=== PATIENT | female | born 1975 | race Caucasian/White ===

== ENCOUNTER 2025-01-14 02:59 | Inpatient (IN) | payer MEDICAID, SELFPAY ==
[2025-01-14] VITALS (21 sets, daily range): BP systolic 108–144; BP diastolic 64–91; PULSE 69–110; RESP 16–20; TEMP 35.5–37; O2SAT 97–100; BMI 21.1
--- NOTE | ~2025-01-14 | CT_ITS ---
CLINICAL INDICATION: Abdominal and chest pain, history of lupus COMPARISON: Reference is made to a CT angiogram of the chest dated 09/29/2018. TECHNIQUE: An enhanced CT of the abdomen and pelvis was performed utilizing multislice spiral [place] ue reconstructed at 5 mm slice thickness. Coronal and sagittal reconstructions were performed. This CT examination was performed utilizing dose reduction techniques. DLP: 335 mGy-cm FINDINGS/OBSERVATIONS: Lung: The lungs are clear. The heart is of normal size, without pericardial effusion. Mediastinum: No pathologically enlarged or morphologically suspicious lymph nodes are identified within the medias tinum, bilateral axilla, within the soft tissues of the anterior chest wall. Soft tissues of the chest: Unremarkable. Bones of the chest: No acute fracture. No lytic or blastic lesions are identified. Liver: The liver enhances homogeneously and is markedly enlarged measuring 25 cm in longitudinal dimension. Gallbladder and biliary system: The gallbladder is distended, but otherwise unremarkable. Pancreas: The pancreas enhances homogeneously, without ductal dilatation. Spleen: The spleen enhances homogeneously and is markedly enlarged measuring 18 cm in longitudinal di mension. 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 The bilateral kidneys enhance symmetrically without hydronephrosis or renal calculi. Adrenal glands: Unremarkable. Gastrointestinal tract: Small hiatal hernia is present. Colonic diverticulosis without surrounding inflammatory change. Fecal stasis within the colon. Appendix: The air-filled appendix is of normal caliber (axial series, images 181 through 192). Vasculature: No calcified atherosclerotic disease is present. No aneurysmal dilatation. Lymph nodes: Scattered nonpathologically enlarged lymph nodes within the root of the mesentery and deep in the pel vis. Pelvic structures: The bladder is only minimally distended and otherwise unremarkable. The uterus is anteverted and anteflexed. Body wall and musculoskeletal: Small fat-containing umbilical hernia. No significant degenerative disease within the lumbosacral spine. IMPRESSION: Significant hepatosplenomegaly. No prior dedicated imaging of the abdomen has been performed to demonstrate that this is a new or sta ble finding. Otherwise, no acute findings within the chest, abdomen or pelvis to explain patient's presenting symp toms. Reviewed, dictated and finalized at location A. IMPRESSION: Significant hepatosplenomegaly. No prior dedicated imaging of the abdomen has been performed to demonstrate marta t this is a new or stable finding. Otherwise, no acute findings within the chest, abdomen or pelvis to explain pat ient's presenting symptoms.
--- NOTE | ~2025-01-14 | US_ITS ---
EXAMINATION: US right upper quadrant DATE: 01/21/2025 08:09 INDICATION: Elevated liver enzymes TECHNIQUE: Multiple grayscale and Doppler ultrasound images of the abdomen were obtained. COMPARISON: None FINDINGS: The pancreatic head and body are normal in appearance. The pancreatic tail is not visualized. Abdomi nal aorta and inferior vena cava are normal. Liver has normal echogenicity and contour, with a smooth surface. No liver lesion identified. No intrahepatic biliary duct dilation suspected. Portal venous flow was seen in the hepatopetal, normal direction and has normal Doppler waveform. The gallbladder i s normal in appearance. There is no cholelithiasis. The common bile duct measures 4 mm, which is nor mal. Sonographic Frost sign was reported as negative by the chip silo tender. IMPRESSION: 1. Normal right upper quadrant ultrasound. Reviewed, dictated and finalized at location B.
--- NOTE | ~2025-01-14 | XR_ITS ---
CHEST RADIOGRAPH CLINICAL HISTORY: chest pain . COMPARISON: 03/13/2019 TECHNIQUE: Single portable view of the chest. FINDINGS The cardiomediastinal silhouette is unremarkable. Increased interstitial markings are identified bilaterally, findings suggesting mild pulmonary vascul ar congestion. The remainder of the lungs are clear. IMPRESSION: Mild pulmonary vascular congestion (versus pulmonary vascular crowding from low lung volumes), withou t focal infiltrate or effusion. Reviewed, dictated and finalized at location A. IMPRESSION: Mild pulmonary vascular congestion (versus pulmonary vascular crowding from low lung volumes), without focal infiltrate or effusion.
--- NOTE | 2025-01-14 04:50 | ECG_ITS ---
Test Date: 2025-01-14 05:13:16 Measurements Intervals Madeline Rate: 102 P: 18 AR: 147 QRS: 55 QRSD: 94 T: 0 QT: 340 QTc: 443 Interpretive Statements SINUS TACHYCARDIA POSSIBLE LEFT ATRIAL ENLARGEMENT [-0.1mV P WAVE IN V1/V2] POSSIBLE RIGHT VENTRICULAR CONDUCTION DELAY [RSR (QR) IN V1/V2] ABNORMAL RHYTHM ECG No previous ECG available for comparison Electronically Signed On 01-14-2025 15:01:38 CDT by Chandra Fontanez M.D.
--- NOTE | 2025-01-14 04:52 | PC.NURSE ---
patients family member presented to triage desk stating that patient was now complaining of chest pain, which was not included in original presenting complaint
[2025-01-14 05:34] LABS: Hematocrit 27.7 % (37.0-47.0); Mean Corpuscular HGB Conc 24.9 g/dl (32-36); Mean Corpuscular Hemoglobin 16.9 pg (26-34); Mean Corpuscular Volume 67.9 fl (80-100); Mean Platelet Volume 8.5 fl (7.4-10.4); Platelet Count Result 545 k/mm3 (150-375); Red Blood Count 4.08 M/mm3 (4.2-5.4); Red Cell Distribution Width 21.7 % (11.5-14.5); White Blood Count 6.2 K/mm3 (4.5-10.0)
[2025-01-14 05:52] LABS: Alanine Aminotransferase 41 U/L (6-35); Albumin Level 3.8 g/dL (3.5-5.1); Alkaline Phosphatase 1206 U/L (38-126); Anion Gap 9 mmol/L (4-12); Aspartate Amino Transferase 62 U/L (14-36); Bilirubin,Total 0.7 mg/dL (0.2-1.3); Blood Urea Nitrogen 16 mg/dL (7-17); Calcium 8.8 mg/dL (8.4-10.2); Carbon Dioxide 25 mmol/L (22-30); Chloride 98 mmol/L (98-107); Estimated CRCL calculation 131 ml/min; Estimated Glomerular Filt Rate > 60; Glucose 123 mg/dL (65-110); Lipase 13 U/L (23-300); Potassium 4.2 mmol/L (3.4-5.0); Sodium 132 mmol/L (137-145)
[2025-01-14 05:57] LABS: Prothrombin Time 13.6 Seconds (11.1-14.7)
[2025-01-14 05:58] LABS: Partial Thromboplastin Time 26.6 Seconds (22.3-36.8)
[2025-01-14 05:59] LABS: Hemoglobin 6.9 g/dL (12.0-15.0)
[2025-01-14 06:00] LABS: Lactic Acid Reflex 1.7 mmol/L (0.7-2.0)
[2025-01-14 06:02] LABS: Troponin I < 0.012 ng/mL (0.000-0.034)
[2025-01-14 06:04] LABS: Neutrophils Percent Manual 80 % (46-73); Platelet Estimate Increased (Adequate); Total Cells Counted 100
[2025-01-14 06:05] LABS: Band Neutrophils Percent 5 % (0-6); Hypochromasia 1+; Lymphocytes Absolute Manual 0.62 K/mm3 (1.1-4.5); Lymphocytes Percent Manual 10 % (18-44); Monocytes Absolute Manual 0.31 K/mm3 (0.1-0.90); Monocytes Percent Manual 5 % (3-9); Neutrophils Absolute Manual 5.27 K/mm3 (1.7-7.2); Ovalocytes 1+; Schistocytes None Seen
--- NOTE | 2025-01-14 06:48 | PC.NURSE ---
Patient was able to use BSC to provide urine sample. Patient had hard BM, patient states she has had constipation for a while.
[2025-01-14 07:02] LABS: Add Urine Microscopic? YES; Appearance Urine Cloudy (Clear); Bacteria Urine None Seen /hpf; Bilirubin Urine 1+ (Negative); Blood Urine Negative (Negative); Color Urine Dark Yellow (Yellow); Glucose Urine UA Negative (Negative); Ketones Urine Trace mg/dL (Negative); Leukocyte Esterase Ur Negative LEU/UL (Negative); Need Manual Microscopic Reviewed; Nitrate Urine Negative (Negative); Protein Urine 1+ mg/dL (Negative); RBC Urine 0-2 /hpf (0-2); Specific Grav Ur 1.028 (1.001-1.035); Squamous Epithelial Cell Urine Occasional /hpf (Few); WBC Urine 0-5 /hpf (0-3); pH Urine 5.5 (5.0-9.0)
--- NOTE | 2025-01-14 07:30 | ED_ITS ---
HPI - General Adult General Chief complaint: Unspecified Stated complaint: leg ulcers, generalized pain Time Seen by Provider: 01/14/25 06:56 History of Present Illness HPI narrative: 49-year-old female with history of lupus presenting to the emergency department for evaluation for multiple complaints. Patient states she has had chronic wounds on her legs that have been worsening over the course of the last year but due to depression patient has not been leaving the house. Patient states this is the 1st time that the lower extremity wounds have been evaluated. Patient does report a prior history of lupus but takes no medication for this. Patient states she has had intermittent episodes of chest pain but denies any current chest pain. Patient states she has had also had issues of large nodules around her neck approximately 1 month ago that also began to resolve spontaneously. Related Data Home Medications ?Medication ?Instructions ?Recorded ?Confirmed ?Last Taken ?Type No Home Medications 01/14/25 01/14/25 Unknown History Allergies Allergy/AdvReac Type Severity Reaction Status Date / Time No Known Allergies Allergy Verified 01/14/25 05:45 Review of Systems 2 Review of Systems: All systems reviewed & are unremarkable except as noted in HPI and below PMFSH Family History Family History (Updated 01/14/25 @ 10:31 by Chrissy Edgar RN) Mother Family history of lupus erythematosus Grandparent Breast cancer Grandparent No problems noted. Social History Social History (System 09/23/21 @ 10:04 by Johnny Cantrell) Smoking status: Former smoker Smoking end date: 12/21/19 Alcohol intake: never Substance use: current Substance use type: marijuana Other substance usage details: Gummies last year Do You Feel Safe in your Home?: Yes Lack of Transportation: No Lack of Food: Never True Current Housing: I Have Housing Concerned About Future Housing: No Difficulty Paying Gas/Electric Bills: No Difficulty Paying for Meds: No Currently Unemployed: No Education: Decline to Answer Difficulty w/ Childcare or Family Care: No Spiritual care concerns: No Exam 2 Narrative: APPEARANCE: Ill-appearing HEAD: normocephalic, atraumatic. EYES: PERRLA/EOMI, conjunctivae clear. NOSE: Normal no drainage EARS:TMS clear with good light reflex. THROAT: Pharynx clear, no exudate. NECK: Supple. No adenopathy, no masses. RESPIRATORY: Airway patent, respirations nonlabored. Clear to auscultation bilaterally, no rales, rhonchi, wheezing. CARDIOVASCULAR: Regular rate and rhythm without murmurs rubs or gallops. ABDOMINAL: Soft, nontender, nondistended, normal bowel sounds MUSCULOSKELETAL: Moves all extremities. Strength/ROM intact, No edema, No calf tenderness. NEURO: Alert. Cranial nerves II through XII intact. Good gait. Good coordination SKIN: Chronic lower extremity wounds encompassing the anterior gore Digital rectal exam: Hemoccult negative Course Vital Signs Vital signs: Vital Signs Temperature 97.7 F 01/14/25 03:02 Pulse Rate 110 H 01/14/25 03:02 Respiratory Rate 20 01/14/25 03:02 Blood Pressure 144/82 H 01/14/25 03:02 Pulse Oximetry 100 01/14/25 03:02 Oxygen Delivery Room Air 01/14/25 03:02 Temperature 97.1 F L 01/14/25 16:49 Pulse Rate 80 01/14/25 16:49 Respiratory Rate 16 01/14/25 16:49 Blood Pressure 130/78 01/14/25 16:49 Pulse Oximetry 98 01/14/25 16:49 Oxygen Delivery Room Air 01/14/25 11:11 Medical Decision Making MDM Narrative Medical decision making narrative: 49-year-old female presented to the emergency department for evaluation for evaluation for her chronic leg wounds. Patient is currently afebrile with no leukocytosis but does have a hemoglobin of 6.9. Patient denies any active bleeding. Patient's creatinine is 0.43, glucose is 123. Mild elevation in AST of 62 ALT is 41 alk phos is 1206, no elevation in lipase, troponin is not elevated. UA does have trace ketones but no underlying evidence of infection. Differential Diagnosis Differential Diagnosis: Lupus, vasculitis, chronic bacterial infection, depression, lymphoma Vital Signs Vital Signs: Vital Signs Temperature 97.7 F 01/14/25 03:02 Pulse Rate 110 H 01/14/25 03:02 Respiratory Rate 20 01/14/25 03:02 Blood Pressure 144/82 H 01/14/25 03:02 Pulse Oximetry 100 01/14/25 03:02 Oxygen Delivery Room Air 01/14/25 03:02 Temperature 97.1 F L 01/14/25 16:49 Pulse Rate 80 01/14/25 16:49 Respiratory Rate 16 05/26/25 16:49 Blood Pressure 130/78 05/26/25 16:49 Pulse Oximetry 98 01/14/25 16:49 Oxygen Delivery Room Air 01/14/25 11:11 Lab Data Lab results reviewed: Yes I reviewed the patient's lab results. 01/14/25 05:28 01/14/25 05:28 Labs: Lab Results 01/14/25 01/14/25 01/14/25 Range/Units 05:28 05:42 06:42 WBC 6.2 (4.5-10.0) K/mm3 RBC 4.08 L (4.2-5.4) M/mm3 Hgb 6.9 L* (12.0-15.0) g/dL Hct 27.7 L (37.0-47.0) % MCV 67.9 L (80-100) fl MCH 16.9 L (26-34) pg MCHC 24.9 L (32-36) g/dl RDW 21.7 H (11.5-14.5) % Plt Count 545 H (150-375) k/mm3 MPV 8.5 (7.4-10.4) fl Immature Gran % (Auto) Not Reportable Neut % (Auto) Not Reportable Lymph % (Auto) Not Reportable Tripp % (Auto) Not Reportable Eos % (Auto) Not Reportable Baso % (Auto) Not Reportable Lymph # (Auto) Not Reportable Tripp # (Auto) Not Reportable Eos # (Auto) Not Reportable Baso # (Auto) Not Reportable Abs Immat Gran (auto) Not Reportable Absolute Neuts (auto) Not Reportable Absolute Nucleated RBC Not Reportable Total Counted 100 Neutrophils % (Manual) 80 H (46-73) % Band Neutrophils % 5 (0-6) % Lymphocytes % (Manual) 10 L (18-44) % Monocytes % (Manual) 5 (3-9) % Nucleated RBC % Not Reportable Abs Neuts (Manual) 5.27 (1.7-7.2) K/mm3 Abs Lymphs (Manual) 0.62 L (1.1-4.5) K/mm3 Abs Monocytes (Manual) 0.31 (0.1-0.90) K/mm3 Platelet Estimate Increased (Adequate) Hypochromasia 1+ Ovalocytes 1+ Schistocytes None seen Absolute Retic 0.16 H (0.02-0.10) 10^6/uL Percent Retic 4.01 (0.7-4.3) % Immature Retic Fraction 24.0 H (3.0-15.9) % Retic Hgb Content 16.8 L (28.2-36.6) pg PT 13.6 (11.1-14.7) Seconds INR 1.0 APTT 26.6 (22.3-36.8) Seconds Sodium 132 L (137-145) mmol/L Potassium 4.2 (3.4-5.0) mmol/L Chloride 98 (98-107) mmol/L Carbon Dioxide 25 (22-30) mmol/L Anion Gap 9 (4-12) mmol/L BUN 16 (7-17) mg/dL Creatinine 0.43 L (0.7-1.0) mg/dL Estim Creat Clear Calc 131 ml/min Estimated GFR > 60 (59 - ) Glucose 123 H (65-110) mg/dL Lactic Acid 1.7 (0.7-2.0) mmol/L Calcium 8.8 (8.4-10.2) mg/dL Iron (37-170) ug/dL TIBC (261-462) ug/dL % Saturation (20-50) % Total Bilirubin 0.7 (0.2-1.3) mg/dL AST 62 H (14-36) U/L ALT 41 H (6-35) U/L Alkaline Phosphatase 1206 H (38-126) U/L Troponin I < 0.012 (0.000-0.034) ng/mL NT-Pro-B Natriuret Pep 62 (19.9-100) pg/mL Total Protein 8.0 (6.3-8.2) g/dL Albumin 3.8 (3.5-5.1) g/dL Lipase 13 L (23-300) U/L Vitamin B12 703.0 (239-931) pg/mL Folate > 20.0 H (2.76->20) ng/mL Urine Color Dark yellow (Yellow) Urine Appearance Cloudy H (Clear) Urine pH 5.5 (5.0-9.0) Ur Specific [place] 1.028 (1.001-1.035) Urine Protein 1+ H (Negative) mg/dL Urine Glucose (UA) Negative (Negative) mg/dL Urine Ketones Trace H (Negative) mg/dL Ur Blood (Man) Negative (Negative) Urine Nitrate Negative (Negative) Urine Bilirubin 1+ H (Negative) Urine Urobilinogen 1.0 (<2.0) mg/dL Add Ur Microanalysis Reviewed Leukocyte Esterase Rfl Negative (Negative) MIKE/UL Urine RBC 0-2 (0-2) /hpf Urine WBC 0-5 (0-3) /hpf Ur Squamous Epith Cells Occasional (Few) /hpf Urine Bacteria None seen /hpf Urine Casts 3-5 Blood Type Antibody Screen Crossmatch 01/14/25 01/14/25 Range/Units 08:23 09:22 WBC (4.5-10.0) K/mm3 RBC (4.2-5.4) M/mm3 Hgb (12.0-15.0) g/dL Hct (37.0-47.0) % MCV (80-100) fl MCH (26-34) pg MCHC (32-36) g/dl RDW (11.5-14.5) % Plt Count (150-375) k/mm3 MPV (7.4-10.4) fl Immature Gran % (Auto) Neut % (Auto) Lymph % (Auto) Tripp % (Auto) Eos % (Auto) Baso % (Auto) Lymph # (Auto) Tripp # (Auto) Eos # (Auto) Baso # (Auto) Abs Immat Gran (auto) Absolute Neuts (auto) Absolute Nucleated RBC Total Counted Neutrophils % (Manual) (46-73) % Band Neutrophils % (0-6) % Lymphocytes % (Manual) (18-44) % Monocytes % (Manual) (3-9) % Nucleated RBC % Abs Neuts (Manual) (1.7-7.2) K/mm3 Abs Lymphs (Manual) (1.1-4.5) K/mm3 Abs Monocytes (Manual) (0.1-0.90) K/mm3 Platelet Estimate (Adequate) Hypochromasia Ovalocytes Schistocytes Absolute Retic (0.02-0.10) 10^6/uL Percent Retic (0.7-4.3) % Immature Retic Fraction (3.0-15.9) % Retic Hgb Content (28.2-36.6) pg PT (11.1-14.7) Seconds INR APTT (22.3-36.8) Seconds Sodium (137-145) mmol/L Potassium (3.4-5.0) mmol/L Chloride (98-107) mmol/L Carbon Dioxide (22-30) mmol/L Anion Gap (4-12) mmol/L BUN (7-17) mg/dL Creatinine (0.7-1.0) mg/dL Estim Creat Clear Calc ml/min Estimated GFR (59 - ) Glucose (65-110) mg/dL Lactic Acid (0.7-2.0) mmol/L Calcium (8.4-10.2) mg/dL Iron 23 L (37-170) ug/dL TIBC 361 (261-462) ug/dL % Saturation 6 L (20-50) % Total Bilirubin (0.2-1.3) mg/dL AST (14-36) U/L ALT (6-35) U/L Alkaline Phosphatase (38-126) U/L Troponin I < 0.012 (0.000-0.034) ng/mL NT-Pro-B Natriuret Pep (19.9-100) pg/mL Total Protein (6.3-8.2) g/dL Albumin (3.5-5.1) g/dL Lipase (23-300) U/L Vitamin B12 (239-931) pg/mL Folate (2.76->20) ng/mL Urine Color (Yellow) Urine Appearance (Clear) Urine pH (5.0-9.0) Ur Specific [place] (1.001-1.035) Urine Protein (Negative) mg/dL Urine Glucose (UA) (Negative) mg/dL Urine Ketones (Negative) mg/dL Ur Blood (Man) (Negative) Urine Nitrate (Negative) Urine Bilirubin (Negative) Urine Urobilinogen (<2.0) mg/dL Add Ur Microanalysis Leukocyte Esterase Rfl (Negative) MIKE/UL Urine RBC (0-2) /hpf Urine WBC (0-3) /hpf Ur Squamous Epith Cells (Few) /hpf Urine Bacteria /hpf Urine Casts Blood Type A Negative Antibody Screen Negative Crossmatch See Detail Imaging Data Radiologist's impression: Impressions Chest X-Ray 01/14/25 06:46 IMPRESSION: Mild pulmonary vascular congestion (versus pulmonary vascular crowding from low lung volumes), without focal infiltrate or effusion. Chest/Abdomen/Pelvis CT 01/14/25 08:30 IMPRESSION: Significant hepatosplenomegaly. No prior dedicated imaging of the abdomen has been performed to demonstrate that this is a new or stable finding. Otherwise, no acute findings within the chest, abdomen or pelvis to explain patient's presenting symptoms. Discharge Plan Discharge Clinical Impression: Cellulitis and abscess of lower extremity, Acute generalized body pain, Depressed Patient Disposition: Still a Patient Condition: Serious
[2025-01-14 08:03] LABS: Reticulocyte Hemoglobin Conten 16.8 pg (28.2-36.6); Reticulocyte Percent 4.01 % (0.7-4.3); Reticulocytes Absolute 0.16 10^6/uL (0.02-0.10)
[2025-01-14 08:14] LABS: NT Pro B Type Natriuretic Pept 62 pg/mL (19.9-100)
[2025-01-14] MEDS: HYDROmorphone HCL INJ (*CRX) 2 MG/ML VIAL 0.5 MG IV PUSH ×2 (08:17→21:04)
[2025-01-14] MEDS: PIPERACILLN/TAZ 3.375GM/NS50ML 3.375 GM/50 ML BAG IVPB ×2 (08:17→17:03)
[2025-01-14 08:39] LABS: Iron 23 ug/dL (37-170)
[2025-01-14 08:49] LABS: Percent Iron Saturation 6 % (20-50)
[2025-01-14 08:53] LABS: Troponin I < 0.012 ng/mL (0.000-0.034)
[2025-01-14 09:18] LABS: Folic Acid > 20.0 ng/mL (2.76->20)
--- NOTE | 2025-01-14 10:20 | ADMGEN ---
This patient, Princess Castellano, was admitted to Medical Room 258-01. Patient/family oriented to hospital policies and general routines including ID bracelet, bed and alarms, visiting hours, pain management, procedures, bathroom and other care routines, personal items, smoking policy, room service/diet, and visiting hours. Information on how to activate the Rapid Response Team has been discussed. Patient/Family are encouraged to report perceived risks to care and to ask questions if they do not understand what they are told or what they should do.
[2025-01-14] MEDS: SODIUM CHLORIDE 0.9% IV 250 ML 30 ML IV CONT (11:21)
[2025-01-14] MEDS: TUBING, BLOOD SET 1 EACH XX (11:22)
[2025-01-14 11:35] LABS: Troponin I < 0.012 ng/mL (0.000-0.034)
--- NOTE | 2025-01-14 13:21 | PM.IMHP ---
H&P: HPI History of Present Illness Date/Time: 01/14/25 13:21 Chief Complaint: leg ulcers, generalized pain Narrative: HPI narrative: 49-year-old female with history of lupus presenting to the emergency department for evaluation for multiple complaints. Patient states she has had chronic wounds on her legs have been worsening over the course of the last year but due to depression patient has not been leaving the house. Patient states this is the 1st time that the lower extremity wounds have been evaluated. Patient does report a prior history of lupus but takes a medication for this. Patient states she has had intermittent episodes of chest pain but denies any current chest pain. Patient states she has had also had issues of large nodules around her neck approximately 1 month ago that also began to resolve spontaneously. patient with b/l lower extremities wounds, ER has started patient on Zosyn, will have wound team evaluate patient, patient pain is persisting, patient is on deluded, will add [place] 5mg q6 and cyclobenzaprine 5mg twice a day and monitor, will follow up on wound and blood culture and further recommendation to follow. will have PT/OT evaluate and further recommendation to follow. patient has been quite depressed most likely reactive 2/2 lower extremities wound and social situation will consult psych for further evaluation. Review of Systems Review of Systems: All systems reviewed & are unremarkable except as noted in HPI and below PMFSH Family History Family History (Updated 01/14/25 @ 10:31 by Chrissy Edgar RN) Mother Family history of lupus erythematosus Grandparent Breast cancer Grandparent No problems noted. Social History Social History (System 09/23/21 @ 10:04 by Johnny Cantrell) Smoking status: Former smoker Smoking end date: 12/21/19 Alcohol intake: never Substance use: current Substance use type: marijuana Other substance usage details: Gummies last year Do You Feel Safe in your Home?: Yes Lack of Transportation: No Lack of Food: Never True Current Housing: I Have Housing Concerned About Future Housing: No Difficulty Paying Gas/Electric Bills: No Difficulty Paying for Meds: No Currently Unemployed: No Education: Decline to Answer Difficulty w/ Childcare or Family Care: No Spiritual care concerns: No Meds Home Medications and Allergies Home Medications ?Medication ?Instructions ?Recorded ?Confirmed ?Type No Home Medications 01/14/25 01/14/25 History Allergies Allergy/AdvReac Type Severity Reaction Status Date / Time No Known Allergies Allergy Verified 01/14/25 05:45 Vital Signs Vital Signs - 24 hr 01/14/25 03:02 01/14/25 05:45 01/14/25 06:24 Temperature 36.5 C Pulse Rate 110 H 99 Respiratory Rate 20 18 Blood Pressure 144/82 H Pulse Oximetry 100 99 Oxygen Delivery Room Air 01/14/25 06:24 01/14/25 07:40 01/14/25 09:33 Temperature 37.0 C Pulse Rate 99 98 91 Respiratory Rate 17 18 20 Blood Pressure 128/76 133/72 118/91 H Pulse Oximetry 98 98 98 Oxygen Delivery 01/14/25 10:30 01/14/25 11:08 01/14/25 11:11 Temperature 36.3 C L Pulse Rate 88 89 Respiratory Rate 16 16 Blood Pressure 139/71 119/70 Pulse Oximetry 99 97 Oxygen Delivery Room Air 01/14/25 11:24 01/14/25 12:00 01/14/25 12:24 Temperature 35.9 C L 35.5 C L Pulse Rate 80 84 69 Respiratory Rate 16 18 Blood Pressure 108/67 114/71 Pulse Oximetry 98 97 Oxygen Delivery Exam Narrative: Patient is comfortable, NAD HEENT: eyes are clear and none icteric LUNGS:CTA HEART: RR S1S2 ABD: BS+, Soft and nontender Lower extremities: no edema SKIN: nonjaundiced Neuro: grossly intact. H&P: Results Labs Labs: Short CBC 01/14/25 Range/Units 05:28 WBC 6.2 (4.5-10.0) K/mm3 Hgb 6.9 L* (12.0-15.0) g/dL Hct 27.7 L (37.0-47.0) % Plt Count 545 H (150-375) k/mm3 BMP 01/14/25 05:28 Sodium 132 L Potassium 4.2 Chloride 98 Carbon Dioxide 25 BUN 16 Creatinine 0.43 L Glucose 123 H Calcium 8.8 Cardiac Enzymes 01/14/25 01/14/25 01/14/25 Range/Units 05:28 08:23 11:06 Troponin I < 0.012 < 0.012 < 0.012 (0.000-0.034) ng/mL Liver Function 01/14/25 Range/Units 05:28 Total Bilirubin 0.7 (0.2-1.3) mg/dL AST 62 H (14-36) U/L ALT 41 H (6-35) U/L Alkaline Phosphatase 1206 H (38-126) U/L Albumin 3.8 (3.5-5.1) g/dL Urine 01/14/25 Range/Units 06:42 Urine Color Dark yellow (Yellow) Urine Appearance Cloudy H (Clear) Urine pH 5.5 (5.0-9.0) Ur Specific [place] 1.028 (1.001-1.035) Urine Protein 1+ H (Negative) mg/dL Urine Glucose (UA) Negative (Negative) mg/dL Assessment and Plan Assessment and plan (1) Cellulitis and abscess of lower extremity: Code(s): L03.119 - Cellulitis of unspecified part of limb; L02.419 - Cutaneous abscess of limb, unspecified Status: Acute (2) Acute generalized body pain: Code(s): R52 - Pain, unspecified Status: Acute (3) Depressed: Code(s): F32.A - Depression, unspecified Status: Acute Plan HPI narrative: 49-year-old female with history of lupus presenting to the emergency department for evaluation for multiple complaints. Patient states she has had chronic wounds on her legs have been worsening over the course of the last year but due to depression patient has not been leaving the house. Patient states this is the 1st time that the lower extremity wounds have been evaluated. Patient does report a prior history of lupus but takes a medication for this. Patient states she has had intermittent episodes of chest pain but denies any current chest pain. Patient states she has had also had issues of large nodules around her neck approximately 1 month ago that also began to resolve spontaneously. patient with b/l lower extremities wounds, ER has started patient on Zosyn, will have wound team evaluate patient, patient pain is persisting, patient is on deluded, will add [place] 5mg q6 and cyclobenzaprine 5mg twice a day and monitor, will follow up on wound and blood culture and further recommendation to follow. will have PT/OT evaluate and further recommendation to follow. patient has been quite depressed most likely reactive 2/2 lower extremities wound and social situation will consult psych for further evaluation. Quality VTE Prophylaxis VTE prophylaxis: mechanical ordered Hospitalist MIPS Advance Care Plan I have confirmed that the patient's Advanced Care Plan is present, code status is documented, or surrogate decision maker is listed in patient medical record.: Yes Medication Reconciliation I have utilized all available resources to obtain, update and review the patients current medications (includes all prescriptions, OTC, herbals, cannabis, and nutritional supplements).: Yes
[2025-01-14] MEDS: CYCLOBENZAPRINE HCL 5 MG TABLET PO (13:25)
[2025-01-14] MEDS: HYDROcodone/acetaminophen (*CRX) 5-325 MG TABLET 1 TAB PO (17:38)
[2025-01-14 18:58] LABS: Hematocrit 29.2 % (37.0-47.0); Hemoglobin 8.2 g/dL (12.0-15.0)
[2025-01-14] MEDS: ONDANSETRON INJ 4 MG/2 ML VIAL IV PUSH (20:59)
[2025-01-14 21:21] LABS: Lactate Dehydrogenase 162 U/L (120-246)
[2025-01-15] VITALS (10 sets, daily range): BP systolic 113–120; BP diastolic 59–68; PULSE 69–84; RESP 18; TEMP 36.4–36.6; O2SAT 96–100
[2025-01-15] MEDS: PIPERACILLN/TAZ 3.375GM/NS50ML 3.375 GM/50 ML BAG IVPB ×5 (00:03→23:06)
[2025-01-15] MEDS: ONDANSETRON INJ 4 MG/2 ML VIAL IV PUSH ×2 (09:16→15:05)
[2025-01-15 10:44] LABS: GGT 351 U/L (3-55)
--- NOTE | 2025-01-15 15:17 | P.PNIM_ITS ---
Progress Note: A&P Assessment and Plan (1) Cellulitis and abscess of lower extremity: Code(s): L03.119 - Cellulitis of unspecified part of limb; L02.419 - Cutaneous abscess of limb, unspecified Status: Acute (2) Acute generalized body pain: Code(s): R52 - Pain, unspecified Status: Acute (3) Depressed: Code(s): F32.A - Depression, unspecified Status: Acute Plan HPI narrative: 49-year-old female with history of lupus presenting to the emergency department for evaluation for multiple complaints. Patient states she has had chronic wounds on her legs have been worsening over the course of the last year but due to depression patient has not been leaving the house. Patient states this is the 1st time that the lower extremity wounds have been evaluated. Patient does report a prior history of lupus but takes a medication for this. Patient states she has had intermittent episodes of chest pain but denies any current chest pain. Patient states she has had also had issues of large nodules around her neck approximately 1 month ago that also began to resolve spontaneously. patient with b/l lower extremities wounds, ER has started patient on Zosyn, will have wound team evaluate patient, patient pain is persisting, patient is on deluded, will add [place] 5mg q6 and cyclobenzaprine 5mg twice a day and monitor, will follow up on wound and blood culture so far no growth, and further recommendation to follow. today patient was seen by wound team and found out that the patient has been using IV illicit drugs, patient does not know what drug she is using to control her pain, will do UDA, will have PT/OT evaluate and further recommendation to follow. patient has been quite depressed most likely reactive 2/2 lower extremities wound and social situation will consult psych for further evaluation. Subjective Date/time seen: 01/15/25 15:17 Interval history: HPI narrative: 49-year-old female with history of lupus presenting to the emergency department for evaluation for multiple complaints. Patient states she has had chronic wounds on her legs have been worsening over the course of the last year but due to depression patient has not been leaving the house. Patient states this is the 1st time that the lower extremity wounds have been evaluated. Patient does report a prior history of lupus but takes a medication for this. Patient states she has had intermittent episodes of chest pain but denies any current chest pain. Patient states she has had also had issues of large nodules around her neck approximately 1 month ago that also began to resolve spontaneously. patient with b/l lower extremities wounds, ER has started patient on Zosyn, will have wound team evaluate patient, patient pain is persisting, patient is on deluded, will add [place] 5mg q6 and cyclobenzaprine 5mg twice a day and monitor, will follow up on wound and blood culture so far no growth, and further recommendation to follow. today patient was seen by wound team and found out that the patient has been using IV illicit drugs, patient does not know what drug she is using to control her pain, will do UDA, will have PT/OT evaluate a nd further recommendation to follow. patient has been quite depressed most likely reactive 2/2 lower extremities wound and social situation will consult psych for further evaluation. Review of Systems Review of Systems: All systems reviewed & are unremarkable except as noted in HPI and below Exam Narrative: Patient is comfortable, NAD HEENT: eyes are clear and none icteric LUNGS:CTA HEART: RR S1S2 ABD: BS+, Soft and nontender Lower extremities: no edema SKIN: nonjaundiced Neuro: grossly intact. Objective Data Vital Signs Vital Signs: Vital Signs - 24 hr 01/14/25 15:22 01/14/25 16:00 01/14/25 16:22 Temperature 36.2 C L 35.8 C L Pulse Rate 85 75 79 Respiratory Rate 16 16 Blood Pressure 118/64 121/73 Pulse Oximetry 98 100 Oxygen Delivery Fraction of Inspired Oxygen 01/14/25 16:49 01/14/25 19:53 01/14/25 20:00 Temperature 36.2 C L 36.4 C Pulse Rate 80 76 Respiratory Rate 16 18 Blood Pressure 130/78 125/76 Pulse Oximetry 98 97 100 Oxygen Delivery Room Air Fraction of Inspired Oxygen 21 01/14/25 20:00 01/14/25 20:50 01/15/25 00:00 Temperature Pulse Rate 78 78 Respiratory Rate Blood Pressure Pulse Oximetry Oxygen Delivery Room Air Fraction of Inspired Oxygen 01/15/25 04:00 01/15/25 04:29 01/15/25 08:02 Temperature 36.4 C Pulse Rate 77 69 72 Respiratory Rate 18 Blood Pressure 115/59 L Pulse Oximetry 96 Oxygen Delivery Fraction of Inspired Oxygen 01/15/25 09:21 01/15/25 12:02 01/15/25 13:40 Temperature Pulse Rate 70 Respiratory Rate 18 Blood Pressure Pulse Oximetry 96 Oxygen Delivery Room Air Room Air Fraction of Inspired Oxygen 01/15/25 14:00 Temperature Pulse Rate 82 Respiratory Rate 18 Blood Pressure 113/66 Pulse Oximetry 100 Oxygen Delivery Fraction of Inspired Oxygen Intake/Output Intake/Output: Intake & Output 01/12/25 01/13/25 01/14/25 01/15/25 23:59 23:59 23:59 23:59 Intake Total 1290 540 Balance 1290 540 Meds/Results Medications: Active Medications Generic Name Dose Route Start Last Admin Trade Name Freq PRN Reason Stop Dose Admin Hydrocodone Bitart/Acetaminophen 1 tab 01/14/25 12:51 01/14/25 17:38 Hydrocodone/Acetaminophen (*Crx) 5-325 Mg Tablet PO 1 tab Q6H PRN Administration Pain Rated 4-6 Cyclobenzaprine HCl 5 mg 01/14/25 12:51 01/14/25 13:25 Cyclobenzaprine Hcl 5 Mg Tablet PO 5 mg Q12H PRN Administration Muscle Spasm Hydromorphone HCl 0.5 mg 01/14/25 08:54 01/14/25 21:04 Hydromorphone Hcl Inj (*Crx) 2 Mg/Ml Vial IV PUSH 0.5 mg Q4H PRN Administration Pain Rated 7-10 Piperacillin/Tazobactam/Dextrose 3.375 gm in 50 mls @ 100 mls/hr 01/15/25 00:00 01/15/25 11:50 Zosyn 3.375 Gm/Ns 50 Ml IVPB Infused Q6HR [facility] Infusion Ondansetron HCl 4 mg 01/15/25 08:00 01/15/25 15:05 Ondansetron Inj 4 Mg/2 Ml Vial IV PUSH 4 mg Q6H PRN Administration Nausea And Vomiting Radiology Results: ITS Impressions Chest X-Ray 01/14/25 06:46 IMPRESSION: Mild pulmonary vascular congestion (versus pulmonary vascular crowding from low lung volumes), without focal infiltrate or effusion. Chest/Abdomen/Pelvis CT 01/14/25 08:30 IMPRESSION: Significant hepatosplenomegaly. No prior dedicated imaging of the abdomen has been performed to demonstrate that this is a new or stable finding. Otherwise, no acute findings within the chest, abdomen or pelvis to explain pat ient's presenting symptoms. Labs Labs: Laboratory Results - last 24 hr 01/14/25 01/14/25 01/14/25 09:22 18:52 20:59 Hgb 8.2 L Hct 29.2 L GGT 351 H Lactate Dehydrogenase 162 Crossmatch See Detail Quality VTE Prophylaxis VTE prophylaxis: mechanical ordered
[2025-01-15] MEDS: BENZOCAINE/MENTHOL (*BKC) 18 EA LOZENGE 1 LOZENGE PO (15:45)
[2025-01-15 16:01] LABS: Amphetamine Screen Urine Negative (Negative); Barbiturate Screen Urine Negative (Negative); Benzodiazepines Screen Urine Negative (Negative); Cannabinoid Screen Urine Negative (Negative); Cocaine Screen Urine Negative (Negative); Methadone Screen Urine Negative (Negative); Opiate Screen Urine Positive (Negative); Phencyclidine Screen Urine Negative (Negative)
--- NOTE | 2025-01-15 16:34 | WPDCNPSYCH ---
Assessment and Plan Assessment and plan (1) Major depressive disorder, recurrent severe without psychotic features: Code(s): F33.2 - Major depressive disorder, recurrent severe without psychotic features Status: Acute (2) Heroin addiction: Code(s): F11.20 - Opioid dependence, uncomplicated Status: Acute (3) Cellulitis and abscess of lower extremity: Code(s): L03.119 - Cellulitis of unspecified part of limb; L02.419 - Cutaneous abscess of limb, unspecified Status: Acute Plan Problem-Based Assessment and Plan Princess, a 49-year-old female with lupus, presents with depression, anxiety, agoraphobia, chronic pain, and opioid use disorder, reporting not leaving her house for over 2 years. Major Depressive Disorder Assessment: Patient reports symptoms of depression including lack of motivation and energy since her youngest daughter was in middle school, coinciding with declining health. Depression appears to be moderate to severe, as evidenced by social isolation (not leaving house for over 2 years) and significant functional impairment. No prior treatment for depression has been pursued. No history of psychosis reported. Plan: - Initiate antidepressant medication to target depression, sleep disturbances, and appetite issues - Start Mirtazipine 15 mg po every night - Refer for outpatient mental health counseling Anxiety Disorder with Agoraphobia Assessment: Patient reports anxiety and panic attacks associated with the prospect of leaving her house. This has resulted in being homebound for over 2 years, indicating severe anxiety with agoraphobic features. Plan: - Antidepressant medication initiated for depression may also help address anxiety symptoms - Encourage gradual exposure therapy as part of outpatient mental health treatment Opioid Use Disorder Assessment: Patient reports daily intravenous use of heroin and fentanyl, which began after running out of prescribed pain medication. Last use was immediately prior to hospitalization. Previous unsuccessful attempt at Suboxone treatment noted. Family history of substance use disorder in paternal aunt. Plan: - Refer to [place] for Suboxone treatment and for depression - Educate on risks of continued opioid use and benefits of medication-assisted treatment Chronic Pain (associated with Lupus) Assessment: Patient reports chronic joint pain and leg ulcers associated with lupus diagnosis. Pain severity contributed to opioid use and social isolation. Plan: - Recommend establishing care with a primary care physician for comprehensive pain management - Consider non-opioid pain management strategies as part of overall treatment plan HPI Data of Consult Date/Time: 01/15/25 16:34 Requesting Physician: Kwame Elizabeth MD Primary Care Provider: [employer] PHYSICIAN Consult Narrative Narrative: Princess Castellano is a 49 year old female Chief Complaint Depression for several years, homebound for over 2 years, severe pain from leg ulcers due to lupus, anxiety about leaving the house, heroin and fentanyl use Admited to [facility] medical floor History of Present Illness Princess Castellano, a 49-year-old woman with three children, presents with a history of depression, anxiety, and substance use in the context of chronic lupus. She reports not leaving her house for over two years due to depression, lack of energy, and pain. The patient's depression began when her youngest daughter, now 18, was in middle school. She attributes this to her declining health. Princess describes having no motivation or energy during this time. She has not received any treatment for depression, including therapy or mental health counseling. The patient also experiences anxiety, particularly related to the prospect of leaving her house, which has worsened over time. Princess reports severe pain associated with her lupus, particularly mentioning joint pain and leg ulcers. The pain became so intense that she felt she could no longer cope, leading to her current hospitalization. To manage her pain, Princess began using heroin and fentanyl intravenously on a daily basis after running out of prescribed pain medication and not returning to her doctor. Her last use was just before coming to the hospital. The patient's substance use has significantly impacted her daily functioning, contributing to her becoming homebound. She attempted Suboxone treatment several years ago but was unable to continue with it. Princess mentions a family history of substance use, noting that an aunt on her father's side is believed to have from drug use. Princess denies any history of psychosis, including hearing voices, seeing things, or experiencing paranoia. Medical History - Depression since patient's 18-year-old daughter was in middle school - Lupus - Anxiety - Heroin and fentanyl use, IV administration - Three pregnancies resulting in live births (children aged 24, 22, and 18) Family History - Aunt (paternal): Suspected drug-related Medications and Supplements Patient reports past use of pain medication, which she ran out of and did not refill. Subsequently, she began using heroin and fentanyl intravenously on a daily basis, with the last use occurring prior to hospital admission. Patient attempted Suboxone treatment several years ago but was unable to continue. Social History - Marital Status: - Children: Three children (ages 24, 22, and 18) - Living Situation: Homebound for over 2 years - Substance Use: Recent IV heroin and fentanyl use daily; previous unsuccessful attempt at Suboxone treatment - Social Isolation: Has not left the house in over 2 years - Coping Mechanisms: Turned to illicit drug use when pain medication ran out Review of Systems Review of Systems: The patient reports significant musculoskeletal symptoms, including joint pain and leg ulcers causing severe discomfort. In the psychiatric domain, she experiences depression, characterized by lack of motivation and energy. Additionally, the patient reports anxiety, particularly related to leaving her house. The patient denies any psychotic symptoms such as hearing voices, seeing things, or paranoia. [facility] Family History Family History (Updated 01/14/25 @ 10:31 by Chrissy Edgar RN) Mother Family history of lupus erythematosus Grandparent Breast cancer Grandparent No problems noted. Social History Social History (System 09/23/21 @ 10:04 by Johnny Cantrell) Smoking status: Former smoker Smoking end date: 12/21/19 Alcohol intake: never Substance use: current Substance use type: marijuana Other substance usage details: Gummies last year Do You Feel Safe in your Home?: Yes Lack of Transportation: No Lack of Food: Never True Current Housing: I Have Housing Concerned About Future Housing: No Difficulty Paying Gas/Electric Bills: No Difficulty Paying for Meds: No Currently Unemployed: No Education: Decline to Answer Difficulty w/ Childcare or Family Care: No Spiritual care concerns: No Meds Home Medications and Allergies Home Medications ?Medication ?Instructions ?Recorded ?Confirmed ?Type No Home Medications 01/14/25 01/14/25 History Allergies Allergy/AdvReac Type Severity Reaction Status Date / Time No Known Allergies Allergy Verified 01/14/25 05:45 Vital Signs Vital Signs - 24 hr 01/14/25 16:49 01/14/25 19:53 01/14/25 20:00 Temperature 97.1 F L 97.6 F Pulse Rate 80 76 Respiratory Rate 16 18 Blood Pressure 130/78 125/76 Pulse Oximetry 98 97 100 Oxygen Delivery Room Air Fraction of Inspired Oxygen 21 01/14/25 20:00 01/14/25 20:50 01/15/25 00:00 Temperature Pulse Rate 78 78 Respiratory Rate Blood Pressure Pulse Oximetry Oxygen Delivery Room Air Fraction of Inspired Oxygen 01/15/25 04:00 01/15/25 04:29 01/15/25 08:02 Temperature 97.6 F Pulse Rate 77 69 72 Respiratory Rate 18 Blood Pressure 115/59 L Pulse Oximetry 96 Oxygen Delivery Fraction of Inspired Oxygen 01/15/25 09:21 01/15/25 12:02 01/15/25 13:40 Temperature Pulse Rate 70 Respiratory Rate 18 Blood Pressure Pulse Oximetry 96 Oxygen Delivery Room Air Room Air Fraction of Inspired Oxygen 01/15/25 14:00 Temperature Pulse Rate 82 Respiratory Rate 18 Blood Pressure 113/66 Pulse Oximetry 100 Oxygen Delivery Fraction of Inspired Oxygen Exam Psych: Other: The patient presents with a depressed mood, describing a lack of motivation and energy. She reports experiencing anxiety, particularly related to leaving her house, which she has not done in over two years. Her thought content reveals preoccupations with physical pain, particularly joint pain and leg ulcers associated with lupus. The patient's thought process appears linear and goal-directed based on her ability to provide a coherent history. She denies any history of psychosis, hallucinations, or paranoia. Cognitively, the patient demonstrates intact recent memory by recalling details of her recent experiences and medical history. Her insight appears fair, as evidenced by her recognition of depression and its impact on her daily functioning. Judgment is assessed as limited, given her reported use of heroin and fentanyl for pain management without medical supervision. Results Labs 01/14/25 18:52 01/14/25 05:28 Labs: Short CBC 01/14/25 Range/Units 18:52 Hgb 8.2 L (12.0-15.0) g/dL Hct 29.2 L (37.0-47.0) %
[2025-01-15] MEDS: HYDROmorphone HCL INJ (*CRX) 2 MG/ML VIAL 0.5 MG IV PUSH (21:34)
[2025-01-16] VITALS (10 sets, daily range): BP systolic 115–121; BP diastolic 63–71; PULSE 66–87; RESP 16–18; TEMP 36.2–36.9; O2SAT 97–100
[2025-01-16] MEDS: PIPERACILLN/TAZ 3.375GM/NS50ML 3.375 GM/50 ML BAG IVPB ×2 (05:16→12:14)
[2025-01-16 07:38] LABS: Haptoglobin 256 mg/dL (43-212)
[2025-01-16] MEDS: ONDANSETRON INJ 4 MG/2 ML VIAL IV PUSH (10:05)
--- NOTE | 2025-01-16 16:23 | PM.IMPN ---
Progress Note: A&P Assessment and Plan (1) Cellulitis and abscess of lower extremity: Code(s): L03.119 - Cellulitis of unspecified part of limb; L02.419 - Cutaneous abscess of limb, unspecified Status: Acute (2) Acute generalized body pain: Code(s): R52 - Pain, unspecified Status: Acute (3) Depressed: Code(s): F32.A - Depression, unspecified Status: Acute Plan HPI narrative: 49-year-old female with history of lupus presenting to the emergency department for evaluation for multiple complaints. Patient states she has had chronic wounds on her legs have been worsening over the course of the last year but due to depression patient has not been leaving the house. Patient states this is the 1st time that the lower extremity wounds have been evaluated. Patient does report a prior history of lupus but takes a medication for this. Patient states she has had intermittent episodes of chest pain but denies any current chest pain. Patient states she has had also had issues of large nodules around her neck approximately 1 month ago that also began to resolve spontaneously. patient with b/l lower extremities wounds, ER has started patient on Zosyn, will have wound team evaluate patient, patient pain is persisting, patient is on deluded, will add [place] 5mg q6 and cyclobenzaprine 5mg twice a day and monitor, will follow up on wound and blood culture so far no growth, and further recommendation to follow. today patient was seen by wound team and found out that the patient has been using IV illicit drugs, patient does not know what drug she is using to control her pain, will do UDS, which showe opiate, patient wound culture is growing multiple organisms discuss with clinical pharmacist, started the patient on Augmentin and Doxycycline, will follow up sensitivity, upon arrival patient hgb was low and receive 1 units PRBC, will go anemia work up, will follow and monitor. will have PT/OT evaluate and further recommendation to follow. patient has been quite depressed most likely reactive 2/2 lower extremities wound and social situation will consult psych for further evaluation. Subjective Date/time seen: 01/16/25 16:23 Interval history: HPI narrative: 49-year-old female with history of lupus presenting to the emergency department for evaluation for multiple complaints. Patient states she has had chronic wounds on her legs have been worsening over the course of the last year but due to depression patient has not been leaving the house. Patient states this is the 1st time that the lower extremity wounds have been evaluated. Patient does report a prior history of lupus but takes a medication for this. Patient states she has had intermittent episodes of chest pain but denies any current chest pain. Patient states she has had also had issues of large nodules around her neck approximately 1 month ago that also began to resolve spontaneously. patient with b/l lower extremities wounds, ER has started patient on Zosyn, will have wound team evaluate patient, patient pain is persisting, patient is on deluded, will add [place] 5mg q6 and cyclobenzaprine 5mg twice a day and monitor, will follow up on wound and blood culture so far no growth, and further recommendation to follow. today patient was seen by wound team and found out that the patient has been using IV illicit drugs, patient does not know what drug she is using to control her pain, will do UDS, which showe opiate, patient wound culture is growing multiple organisms discuss with clinical pharmacist, started the patient on Augmentin and Doxycycline, will follow up sensitivity, upon arrival patient hgb was low and receive 1 units PRBC, will go anemia work up, will follow and monitor. will have PT/OT evaluate and further recommendation to follow. patient has been quite depressed most likely reactive 2/2 lower extremities wound and social situation will consult psych for further evaluation. Review of Systems Review of Systems: All systems reviewed & are unremarkable except as noted in HPI and below Exam Narrative: Patient is comfortable, NAD HEENT: eyes are clear and none icteric LUNGS:CTA HEART: RR S1S2 ABD: BS+, Soft and nontender Lower extremities: no edema SKIN: nonjaundiced Neuro: grossly intact. Objective Data Vital Signs Vital Signs: Vital Signs - 24 hr 01/15/25 20:00 01/15/25 21:35 01/15/25 22:00 Temperature 36.6 C Pulse Rate 78 84 Respiratory Rate 18 Blood Pressure 120/68 Pulse Oximetry 100 Oxygen Delivery Room Air 01/16/25 00:00 01/16/25 04:00 01/16/25 06:00 Temperature 36.2 C L Pulse Rate 66 76 70 Respiratory Rate 18 Blood Pressure 121/63 Pulse Oximetry 97 Oxygen Delivery 01/16/25 07:40 01/16/25 08:03 01/16/25 12:02 Temperature Pulse Rate 82 87 Respiratory Rate 16 Blood Pressure Pulse Oximetry 100 Oxygen Delivery Room Air 01/16/25 13:58 01/16/25 14:00 Temperature 36.5 C Pulse Rate 85 Respiratory Rate 16 Blood Pressure 115/71 Pulse Oximetry 100 Oxygen Delivery Room Air Intake/Output Intake/Output: Intake & Output 01/13/25 01/14/25 01/15/25 01/16/25 23:59 23:59 23:59 23:59 Intake Total 1290 840 410 Balance 1290 840 410 Meds/Results Medications: Active Medications Generic Name Dose Route Start Last Admin Trade Name Freq PRN Reason Stop Dose Admin Hydrocodone Bitart/Acetaminophen 1 tab 01/14/25 12:51 01/14/25 17:38 Hydrocodone/Acetaminophen (*Crx) 5-325 Mg Tablet PO 1 tab Q6H PRN Administration Pain Rated 4-6 Amoxicillin/Clavulanate Potassium 1 tablet 01/16/25 19:00 Amoxicillin/Clavulanate K 875-125 Mg Tab PO Q12HR [facility] Benzocaine 1 lozenge 01/15/25 15:22 01/15/25 15:45 Benzocaine/Menthol (*Bkc) 18 Ea Lozenge PO 1 lozenge PRN PRN Administration Sore Throat Cyclobenzaprine HCl 5 mg 01/14/25 12:51 01/14/25 13:25 Cyclobenzaprine Hcl 5 Mg Tablet PO 5 mg Q12H PRN Administration Muscle Spasm Doxycycline Hyclate 100 mg 01/16/25 16:00 Doxycycline Hyclate 100 Mg Tablet PO Q12HR [facility] Hydromorphone HCl 0.5 mg 01/14/25 08:54 01/15/25 21:34 Hydromorphone Hcl Inj (*Crx) 2 Mg/Ml Vial IV PUSH 0.5 mg Q4H PRN Administration Pain Rated 7-10 Ondansetron HCl 4 mg 01/15/25 08:00 01/16/25 10:05 Ondansetron Inj 4 Mg/2 Ml Vial IV PUSH 4 mg Q6H PRN Administration Nausea And Vomiting Radiology Results: ITS Impressions Chest X-Ray 01/14/25 06:46 IMPRESSION: Mild pulmonary vascular congestion (versus pulmonary vascular crowding from low lung volumes), without focal infiltrate or effusion. Chest/Abdomen/Pelvis CT 01/14/25 08:30 IMPRESSION: Significant hepatosplenomegaly. No prior dedicated imaging of the abdomen has been performed to demonstrate that this is a new or stable finding. Otherwise, no acute findings within the chest, abdomen or pelvis to explain patient's presenting symptoms. Labs Labs: Laboratory Results - last 24 hr 01/14/25 20:59 Haptoglobin 256 H Quality VTE Prophylaxis VTE prophylaxis: mechanical ordered
[2025-01-16] MEDS: DOXYCYCLINE HYCLATE 100 MG TABLET PO ×2 (16:24→23:33)
[2025-01-16] MEDS: AMOXICILLIN/CLAVULANATE K 875-125 MG TAB 1 TABLET PO (18:14)
[2025-01-16] MEDS: HYDROmorphone HCL INJ (*CRX) 2 MG/ML VIAL 0.5 MG IV PUSH (21:47)
[2025-01-17] VITALS (9 sets, daily range): BP systolic 107–124; BP diastolic 66–77; PULSE 74–89; RESP 16–18; TEMP 36.8–37.1; O2SAT 98
[2025-01-17 06:27] LABS: Iron 32 ug/dL (37-170)
[2025-01-17 06:37] LABS: Percent Iron Saturation 8 % (20-50)
[2025-01-17 07:34] LABS: Folic Acid 7.1 ng/mL (2.76->20)
[2025-01-17] MEDS: AMOXICILLIN/CLAVULANATE K 875-125 MG TAB 1 TABLET PO ×2 (08:57→21:23)
[2025-01-17] MEDS: DOXYCYCLINE HYCLATE 100 MG TABLET PO ×2 (08:57→21:23)
[2025-01-17] MEDS: IRON SUCROSE COMPLEX 200 MG, IRON SUCROSE COMPLEX 100 MG in SODIUM CHLORIDE 0.9% IV 250 ML 176.67 MG IVPB (11:49)
--- NOTE | 2025-01-17 14:07 | P.PNIM_ITS ---
Progress Note: A&P Assessment and Plan (1) Cellulitis and abscess of lower extremity: Code(s): L03.119 - Cellulitis of unspecified part of limb; L02.419 - Cutaneous abscess of limb, unspecified Status: Acute (2) Acute generalized body pain: Code(s): R52 - Pain, unspecified Status: Acute (3) Depressed: Code(s): F32.A - Depression, unspecified Status: Acute Plan HPI narrative: 49-year-old female with history of lupus presenting to the emergency department for evaluation for multiple complaints. Patient states she has had chronic wounds on her legs have been worsening over the course of the last year but due to depression patient has not been leaving the house. Patient states this is the 1st time that the lower extremity wounds have been evaluated. Patient does report a prior history of lupus but takes a medication for this. Patient states she has had intermittent episodes of chest pain but denies any current chest pain. Patient states she has had also had issues of large nodules around her neck approximately 1 month ago that also began to resolve spontaneously. patient with b/l lower extremities wounds, ER has started patient on Zosyn, will have wound team evaluate patient, patient pain is persisting, patient is on deluded, will add [place] 5mg q6 and cyclobenzaprine 5mg twice a day and monitor, will follow up on wound and blood culture so far no growth, and further recommendation to follow. today patient was seen by wound team and found out that the patient has been using IV illicit drugs, patient does not know what drug she is using to control her pain, will do UDS, which showe opiate, patient wound culture is growing multiple organisms discuss with clinical pharmacist, started the patient on Augmentin and Doxycycline, will follow up sensitivity, which is still pending will continue doxycycline discussed with clinical ph fadia, upon arrival patient hgb was low and receive 1 units PRBC, anemia work up low iron, will treat with Venofer 300mgx 3day, will follow and monitor. will have PT/OT evaluate and further recommendation to follow. patient has been quite depressed most likely reactive 2/2 lower extremities wound and social situation was seen by psychiatrist and started patient on Mirtazipine 15mg PO qhs to help with sleep and appetite, will monitor. Subjective Date/time seen: 01/17/25 14:07 Interval history: HPI narrative: 49-year-old female with history of lupus presenting to the emergency department for evaluation for multiple complaints. Patient states she has had chronic wounds on her legs have been worsening over the course of the last year but due to depression patient has not been leaving the house. Patient states this is the 1st time that the lower extremity wounds have been evaluated. Patient does report a prior history of lupus but takes a medication for this. Patient states she has had intermittent episodes of chest pain but denies any current chest pa in. Patient states she has had also had issues of large nodules around her neck approximately 1 month ago that also began to resolve spontaneously. patient with b/l lower extremities wounds, ER has started patient on Zosyn, will have wound team evaluate patient, patient pain is persisting, patient is on deluded, will add [place] 5mg q6 and cyclobenzaprine 5mg twice a day and monitor, will follow up on wound and blood culture so far no growth, and further recommendation to follow. today patient was seen by wound team and found out that the patient has been using IV illicit drugs, patient does not know what drug she is using to control her pain, will do UDS, which showe opiate, patient wound culture is growing multiple organisms discuss with clinical pharmacist, started the patient on Augmentin and Doxycycline, will follow up sensitivity, which is still pending will continue doxycycline discussed with clinical pharmacist, upon arrival patient hgb was low and receive 1 units PRBC, anemia work up low iron, will treat with Venofer 300mgx 3day, will follow and monitor. will have PT/OT evaluate and further recommendation to follow. patient has been quite depressed most likely reactive 2/2 lower extremities wound and social situation was seen by psychiatrist and started patient on Mirtazipine 15mg PO qhs to help with sleep and appetite, will monitor. Review of Systems Review of Systems: All systems reviewed & are unremarkable except as noted in HPI and below Exam Narrative: Patient is comfortable, NAD HEENT: eyes are clear and none icteric LUNGS:CTA HEART: RR S1S2 ABD: BS+, Soft and nontender Lower extremities: no edema SKIN: nonjaundiced Neuro: grossly intact. Objective Data Vital Signs Vital Signs: Vital Signs - 24 hr 01/16/25 16:03 01/16/25 20:00 01/16/25 21:23 Temperature 36.9 C Pulse Rate 75 83 77 Respiratory Rate 16 Blood Pressure 116/66 Pulse Oximetry 97 Oxygen Delivery 01/16/25 21:43 01/17/25 00:00 01/17/25 04:00 Temperature Pulse Rate 79 76 Respiratory Rate Blood Pressure Pulse Oximetry Oxygen Delivery Room Air 01/17/25 05:36 01/17/25 08:03 01/17/25 08:03 Temperature 37.0 C Pulse Rate 74 77 Respiratory Rate 18 18 Blood Pressure 118/69 Pulse Oximetry 98 98 Oxygen Delivery Room Air 01/17/25 12:02 Temperature Pulse Rate 83 Respiratory Rate Blood Pressure Pulse Oximetry Oxygen Delivery Intake/Output Intake/Output: Intake & Output 01/14/25 01/15/25 01/16/25 01/17/25 23:59 23:59 23:59 23:59 Intake Total 1290 840 460 905 Balance 1290 840 460 905 Meds/Results Medications: Active Medications Generic Name Dose Route Start Last Admin Trade Name Freq PRN Reason Stop Dose Admin Hydrocodone Bitart/Acetaminophen 1 tab 01/14/25 12:51 01/14/25 17:38 Hydrocodone/Acetaminophen (*Crx) 5-325 Mg Tablet PO 1 tab Q6H PRN Administration Pain Rated 4-6 Amoxicillin/Clavulanate Potassium 1 tablet 01/16/25 19:00 01/17/25 08:57 Amoxicillin/Clavulanate K 875-125 Mg Tab PO 1 tablet Q12HR INGRIS Administration Benzocaine 1 lozenge 01/15/25 15:22 01/15/25 15:45 Benzocaine/Menthol (*Bkc) 18 Ea Lozenge PO 1 lozenge PRN PRN Administration Sore Throat Cyclobenzaprine HCl 5 mg 01/14/25 12:51 01/14/25 13:25 Cyclobenzaprine Hcl 5 Mg Tablet PO 5 mg Q12H PRN Administration Muscle Spasm Doxycycline Hyclate 100 mg 01/16/25 16:00 01/17/25 08:57 Doxycycline Hyclate 100 Mg Tablet PO 100 mg Q12HR INGRIS Administration Hydromorphone HCl 0.5 mg 01/14/25 08:54 01/16/25 21:47 Hydromorphone Hcl Inj (*Crx) 2 Mg/Ml Vial IV PUSH 0.5 mg Q4H PRN Administration Pain Rated 7-10 Iron Sucrose 200 mg/ Iron 265 mls @ 176.667 mls/hr 01/18/25 09:00 Sucrose 100 mg/ Sodium IVPB 01/18/25 10:29 Chloride ONCE ONE Iron Sucrose 200 mg/ Iron 265 mls @ 176.667 mls/hr 01/19/25 09:00 Sucrose 100 mg/ Sodium IVPB 01/19/25 10:29 Chloride ONCE ONE Ondansetron HCl 4 mg 01/15/25 08:00 01/16/25 10:05 Ondansetron Inj 4 Mg/2 Ml Vial IV PUSH 4 mg Q6H PRN Administration Nausea And Vomiting Radiology Results: ITS Impressions Chest X-Ray 01/14/25 06:46 IMPRESSION: Mild pulmonary vascular congestion (versus pulmonary vascular crowding from low lung volumes), without focal infiltrate or effusion. Chest/Abdomen/Pelvis CT 01/14/25 08:30 IMPRESSION: Significant hepatosplenomegaly. No prior dedicated imaging of the abdomen has been performed to demonstrate that this is a new or stable finding. Otherwise, no acute findings within the chest, abdomen or pelvis to explain patient's presenting symptoms. Labs Labs: Laboratory Results - last 24 hr 01/17/25 06:05 Iron 32 L TIBC 410 % Saturation 8 L Ferritin 10.70 Vitamin B12 764.0 Folate 7.1 Quality VTE Prophylaxis VTE prophylaxis: mechanical ordered
[2025-01-17] MEDS: MIRTAZAPINE 15 MG TABLET PO (21:23)
[2025-01-18] VITALS (9 sets, daily range): BP systolic 121–126; BP diastolic 70–71; PULSE 75–99; RESP 16–18; TEMP 36.4–36.9; O2SAT 97–100
[2025-01-18 08:01] LABS: Basophils Percent Auto 0.7 % (0.2-1.2); Eosinophils Absolute Auto 0.1 K/mm3 (0-0.3); Eosinophils Percent Auto 2.4 % (0-4.4); Hematocrit 35.6 % (37.0-47.0); Hemoglobin 9.3 g/dL (12.0-15.0); Immature Granulocyte Absolute 0.01 K/mm3 (0.00-0.031); Immature Granulocyte Percent A 0.3 % (0-0.5); Lymphocytes Absolute Auto 0.75 K/mm3 (0.9-3.2); Lymphocytes Percent Auto 26.2 % (18.3-44.2); Mean Corpuscular HGB Conc 26.1 g/dl (32-36); Mean Corpuscular Hemoglobin 19.4 pg (26-34); Mean Corpuscular Volume 74.2 fl (80-100); Mean Platelet Volume 8.7 fl (7.4-10.4); Monocytes Absolute Auto 0.3 K/mm3 (0.1-0.6); Monocytes Percent Auto 11.2 % (2.6-8.5); Neutrophils Absolute Auto 1.7 K/mm3 (1.3-6.7); Neutrophils Percent Auto 59.2 % (45.5-73.1); Platelet Count Result 437 k/mm3 (150-375); Red Cell Distribution Width 22.8 % (11.5-14.5); White Blood Count 2.9 K/mm3 (4.5-10.0)
[2025-01-18 08:22] LABS: Alanine Aminotransferase 36 U/L (6-35); Albumin Level 3.8 g/dL (3.5-5.1); Alkaline Phosphatase 676 U/L (38-126); Anion Gap 8 mmol/L (4-12); Aspartate Amino Transferase 54 U/L (14-36); Bilirubin,Total 0.5 mg/dL (0.2-1.3); Blood Urea Nitrogen 12 mg/dL (7-17); Calcium 9.2 mg/dL (8.4-10.2); Carbon Dioxide 28 mmol/L (22-30); Chloride 103 mmol/L (98-107); Estimated CRCL calculation 113 ml/min; Estimated Glomerular Filt Rate > 60; Glucose 142 mg/dL (65-110); Potassium 3.5 mmol/L (3.4-5.0); Sodium 139 mmol/L (137-145)
[2025-01-18 08:27] LABS: Anisocytosis 1+; Hypochromasia 1+; Microcytosis 1+ (NORMAL); Ovalocytes 1+; Platelet Estimate Adequate (Adequate); Schistocytes None Seen
[2025-01-18] MEDS: IRON SUCROSE COMPLEX 200 MG, IRON SUCROSE COMPLEX 100 MG in SODIUM CHLORIDE 0.9% IV 250 ML 176.67 MG IVPB (08:51)
[2025-01-18] MEDS: AMOXICILLIN/CLAVULANATE K 875-125 MG TAB 1 TABLET PO ×2 (08:51→20:49)
[2025-01-18] MEDS: DOXYCYCLINE HYCLATE 100 MG TABLET PO (08:51)
--- NOTE | 2025-01-18 10:36 | P.PNIM_ITS ---
Progress Note: A&P Assessment and Plan (1) Cellulitis and abscess of lower extremity: Code(s): L03.119 - Cellulitis of unspecified part of limb; L02.419 - Cutaneous abscess of limb, unspecified Status: Acute Assessment and Plan: - Monitor vital signs, I&Os, neuro status and patient is a fall risk - Monitor serum electrolytes, CBC, cultures, WBC and temp curve - wound care consulted - wound culture shows sensitivity to Augmentin - Gentle IV fluids resuscitation (2) Anemia: Code(s): D64.9 - Anemia, unspecified Status: Acute Assessment and Plan: * Upon admission 01/14, HGB 6.9 * Received 1 unit PRBC * Treating with Venofer 300mgx 3day, last dose this Tuesday (3) Depressed: Code(s): F32.A - Depression, unspecified Status: Acute Assessment and Plan: * Psychiatric consult * Started Mirtazipine 15mg PO at night * Outpatient MH counseling (4) Opioid use disorder: Code(s): F11.90 - Opioid use, unspecified, uncomplicated Status: Acute Assessment and Plan: * Psychiatry recommend referral to [place] for Suboxone tx & depression Plan patient with b/l lower extremities wounds, ER has started patient on Zosyn, will have wound team evaluate patient, patient pain is persisting, patient is on deluded, will add [place] 5mg q6 and cyclobenzaprine 5mg twice a day and monitor, will follow up on wound and blood culture so far no growth, and further recommendation to follow. today patient was seen by wound team and found out that the patient has been using IV illicit drugs, patient does not know what drug she is using to control her pain, will do UDS, which showe opiate, patient wound culture is growing multiple organisms discuss with clinical pharmacist, started the patient on Augmentin and Doxycycline, will follow up sensitivity, which is still pending will continue doxycycline discussed with clinical pharmacist, upon arrival patient hgb was low and receive 1 units PRBC, anemia work up low iron, will treat with Venofer 300mgx 3day, will follow and monitor. will have PT/OT evaluate and further recommendation to follow. patient has been quite depressed most likely reactive 2/2 lower extremities wound and social situation was seen by psychiatrist and started patient on Mirtazipine 15mg PO qhs to help with sleep and appetite, will monitor. Subjective Date/time seen: 01/18/25 10:36 Interval history: 49-year-old female with history of lupus presenting to the emergency department for evaluation for multiple complaints. Patient states she has had chronic wounds on her legs have been worsening over the course of the last year but due to depression patient has not been leaving the house. 01/18/2025 Patient is sitting comfortably in bed at time examination. Denies any chest pain, shortness of breath, nausea/vomiting, or abdominal pain. Still has some of bilateral lower extremity discomfort. PT/OT eval as pending at this time. Patient to receive 1 additional dose of Venofer tomorrow. Wound culture sensitivities resulted, still covered by Augmentin. Maintain antibiotic coverage with likely discharge this weekend. Review of Systems Review of Systems: All systems reviewed & are unremarkable except as noted in HPI and below Exam Narrative: Patient is comfortable, NAD HEENT: eyes are clear and none icteric LUNGS:CTA HEART: RR S1S2 ABD: BS+, Soft and nontender Lower extremities: no edema SKIN: nonjaundiced Neuro: grossly intact. Objective Data Vital Signs Vital Signs: Vital Signs - 24 hr 01/17/25 12:02 01/17/25 14:00 01/17/25 16:02 Temperature 98.8 F Pulse Rate 83 86 89 Respiratory Rate 16 Blood Pressure 124/77 Pulse Oximetry 98 Oxygen Delivery 01/17/25 20:00 01/17/25 20:09 01/17/25 21:18 Temperature 98.3 F Pulse Rate 81 79 Respiratory Rate 17 Blood Pressure 107/66 Pulse Oximetry 98 Oxygen Delivery Room Air 01/18/25 00:00 01/18/25 04:00 01/18/25 04:46 Temperature 98.4 F Pulse Rate 75 81 82 Respiratory Rate 16 Blood Pressure 121/70 Pulse Oximetry 100 Oxygen Delivery Intake/Output Intake/Output: Intake & Output 01/15/25 01/16/25 01/17/25 01/18/25 23:59 23:59 23:59 23:59 Intake Total 849 703 5394 220 Balance 061 021 8319 220 Meds/Results Medications: Active Medications Generic Name Dose Route Start Last Admin Trade Name Freq PRN Reason Stop Dose Admin Hydrocodone Bitart/Acetaminophen 1 tab 01/14/25 12:51 01/14/25 17:38 Hydrocodone/Acetaminophen (*Crx) 5-325 Mg Tablet PO 1 tab Q6H PRN Administration Pain Rated 4-6 Amoxicillin/Clavulanate Potassium 1 tablet 01/16/25 19:00 01/18/25 08:51 Amoxicillin/Clavulanate K 875-125 Mg Tab PO 1 tablet Q12HR INGRIS Administration Benzocaine 1 lozenge 01/15/25 15:22 01/15/25 15:45 Benzocaine/Menthol (*Bkc) 18 Ea Lozenge PO 1 lozenge PRN PRN Administration Sore Throat Cyclobenzaprine HCl 5 mg 01/14/25 12:51 01/14/25 13:25 Cyclobenzaprine Hcl 5 Mg Tablet PO 5 mg Q12H PRN Administration Muscle Spasm Doxycycline Hyclate 100 mg 01/16/25 16:00 01/18/25 08:51 Doxycycline Hyclate 100 Mg Tablet PO 100 mg Q12HR INGRIS Administration Hydromorphone HCl 0.5 mg 01/14/25 08:54 01/16/25 21:47 Hydromorphone Hcl Inj (*Crx) 2 Mg/Ml Vial IV PUSH 0.5 mg Q4H PRN Administration Pain Rated 7-10 Iron Sucrose 200 mg/ Iron 265 mls @ 176.667 mls/hr 01/19/25 09:00 Sucrose 100 mg/ Sodium IVPB 01/19/25 10:29 Chloride ONCE ONE Mirtazapine 15 mg 01/17/25 21:00 01/17/25 21:23 Mirtazapine 15 Mg Tablet PO 15 mg HS INGRIS Administration Ondansetron HCl 4 mg 01/15/25 08:00 01/16/25 10:05 Ondansetron Inj 4 Mg/2 Ml Vial IV PUSH 4 mg Q6H PRN Administration Nausea And Vomiting Radiology Results: ITS Impressions Chest X-Ray 01/14/25 06:46 IMPRESSION: Mild pulmonary vascular congestion (versus pulmonary vascular crowding from low lung volumes), without focal infiltrate or effusion. Chest/Abdomen/Pelvis CT 01/14/25 08:30 IMPRESSION: Significant hepatosplenomegaly. No prior dedicated imaging of the abdomen has been performed to demonstrate that this is a new or stable finding. Otherwise, no acute findings within the chest, abdomen or pelvis to explain patient's presenting symptoms. Labs Labs: Laboratory Results - last 24 hr 01/18/25 07:38 WBC 2.9 L RBC 4.80 Hgb 9.3 L Hct 35.6 L MCV 74.2 L D MCH 19.4 L D MCHC 26.1 L RDW 22.8 H Plt Count 437 H MPV 8.7 Immature Gran % (Auto) 0.3 Neut % (Auto) 59.2 Lymph % (Auto) 26.2 [place] % (Auto) 11.2 H Eos % (Auto) 2.4 Baso % (Auto) 0.7 Lymph # (Auto) 0.75 L [place] # (Auto) 0.3 Eos # (Auto) 0.1 Baso # (Auto) 0.0 Abs Immat Gran (auto) 0.01 Absolute Neuts (auto) 1.7 Absolute Nucleated RBC 0.000 Band Neutrophils % Not Reportable Nucleated RBC % 0.0 Platelet Estimate Adequate Hypochromasia 1+ Anisocytosis 1+ Microcytosis 1+ Ovalocytes 1+ Schistocytes None seen Sodium 139 Potassium 3.5 Chloride 103 Carbon Dioxide 28 Anion Gap 8 BUN 12 Creatinine 0.50 L Estim Creat Clear Calc 113 Estimated GFR > 60 Glucose 142 H Calcium 9.2 Total Bilirubin 0.5 AST 54 H ALT 36 H Alkaline Phosphatase 676 H Total Protein 8.0 Albumin 3.8 Quality VTE Prophylaxis VTE prophylaxis: mechanical ordered
[2025-01-18] MEDS: HYDROmorphone HCL INJ (*CRX) 2 MG/ML VIAL 0.5 MG IV PUSH ×2 (10:40→15:18)
[2025-01-18] MEDS: MIRTAZAPINE 15 MG TABLET PO (20:49)
[2025-01-19] VITALS (10 sets, daily range): BP systolic 113–139; BP diastolic 56–78; PULSE 71–99; RESP 18–20; TEMP 36.1–36.4; O2SAT 97–99
[2025-01-19] MEDS: AMOXICILLIN/CLAVULANATE K 875-125 MG TAB 1 TABLET PO ×2 (09:02→20:20)
[2025-01-19] MEDS: IRON SUCROSE COMPLEX 200 MG, IRON SUCROSE COMPLEX 100 MG in SODIUM CHLORIDE 0.9% IV 250 ML 176.67 MG IVPB (09:03)
[2025-01-19] MEDS: HYDROcodone/acetaminophen (*CRX) 5-325 MG TABLET 1 TAB PO (10:13)
[2025-01-19] MEDS: CYCLOBENZAPRINE HCL 5 MG TABLET PO (10:14)
--- NOTE | 2025-01-19 12:45 | P.PNIM_ITS ---
Progress Note: A&P Assessment and Plan (1) Cellulitis and abscess of lower extremity: Code(s): L03.119 - Cellulitis of unspecified part of limb; L02.419 - Cutaneous abscess of limb, unspecified Status: Acute Assessment and Plan: BL leg wounds pt treated wit iv zosyn transitioned to oral now - continue abx and pain meds PRN - wound care consulted - wound culture shows sensitivity to Augmentin - oral abx started (2) Anemia: Code(s): D64.9 - Anemia, unspecified Status: Acute Assessment and Plan: * Upon admission 01/14, HGB 6.9 * Received 1 unit PRBC * Treating with Venofer 300mgx 3day, last dose this Tuesday * consult GI MD for possible scopes (3) Depressed: Code(s): F32.A - Depression, unspecified Status: Acute Assessment and Plan: * Psychiatric consult * Started Mirtazipine 15mg PO at night * Outpatient MH counseling (4) Opioid use disorder: Code(s): F11.90 - Opioid use, unspecified, uncomplicated Status: Acute Assessment and Plan: * Psychiatry recommend referral to [place] for Suboxone tx & depression Subjective Date/time seen: 01/19/25 12:45 Interval history: 49-year-old female with history of lupus presenting to the emergency department for evaluation for multiple complaints. Patient states she has had chronic wounds on her legs have been worsening over the course of the last year but due to depression patient has not been leaving the house. 01/18/2025 Patient is sitting comfortably in bed at time examination. Denies any chest pain, shortness of breath, nausea/vomiting, or abdominal pain. Still has some of bilateral lower extremity discomfort. PT/OT eval as pending at this time. Patient to receive 1 additional dose of Venofer tomorrow. Wound culture sensitivities resulted, still covered by Augmentin. Maintain antibiotic coverage with likely discharge this weekend. 01/19/2025 Pt receiving oral abx for cellulitis, pt receiving IV Venofer for anemia sp blood tranfusion, pt states she is having some rectal bleeding plan to consult GI for severe anemia. Hb 6 on admission. Continue present care with oral abx and dressing changes. Review of Systems Review of Systems: History of rectal bleeding History of vaginal prolapse History of possible cat/ dog bites on her legs Exam Narrative: Patient is comfortable, NAD HEENT: eyes are clear and none icteric LUNGS:CTA HEART: RR S1S2 ABD: BS+, Soft and nontender Lower extremities: no edema SKIN: nonjaundiced Neuro: grossly intact. Objective Data Vital Signs Vital Signs: Vital Signs - 24 hr 01/18/25 14:00 01/18/25 16:00 01/18/25 20:00 Temperature 36.4 C Pulse Rate 82 86 95 Respiratory Rate 18 16 Blood Pressure 124/71 Pulse Oximetry 98 97 Oxygen Delivery Room Air Fraction of Inspired Oxygen 21 01/18/25 20:00 01/18/25 20:35 01/19/25 00:00 Temperature 36.5 C Pulse Rate 99 95 76 Respiratory Rate 16 Blood Pressure 126/70 Pulse Oximetry 97 Oxygen Delivery Fraction of Inspired Oxygen 01/19/25 04:00 01/19/25 06:00 01/19/25 08:00 Temperature 36.1 C L Pulse Rate 74 74 Respiratory Rate 18 Blood Pressure 113/78 Pulse Oximetry 99 Oxygen Delivery Room Air Fraction of Inspired Oxygen 01/19/25 08:00 01/19/25 12:00 Temperature Pulse Rate 76 85 Respiratory Rate Blood Pressure Pulse Oximetry Oxygen Delivery Fraction of Inspired Oxygen Intake/Output Intake/Output: Intake & Output 01/16/25 01/17/25 01/18/25 01/19/25 23:59 23:59 23:59 23:59 Intake Total 460 1730 845 785 Balance 460 1730 845 785 Meds/Results Medications: Active Medications Generic Name Dose Route Start Last Admin Trade Name Freq PRN Reason Stop Dose Admin Hydrocodone Bitart/Acetaminophen 1 tab 01/14/25 12:51 01/19/25 10:13 Hydrocodone/Acetaminophen (*Crx) 5-325 Mg Tablet PO 1 tab Q6H PRN Administration Pain Rated 4-6 Amoxicillin/Clavulanate Potassium 1 tablet 01/16/25 19:00 01/19/25 09:02 Amoxicillin/Clavulanate K 875-125 Mg Tab PO 1 tablet Q12HR INGRIS Administration Benzocaine 1 lozenge 01/15/25 15:22 01/15/25 15:45 Benzocaine/Menthol (*Bkc) 18 Ea Lozenge PO 1 lozenge PRN PRN Administration Sore Throat Cyclobenzaprine HCl 5 mg 01/14/25 12:51 01/19/25 10:14 Cyclobenzaprine Hcl 5 Mg Tablet PO 5 mg Q12H PRN Administration Muscle Spasm Hydromorphone HCl 0.5 mg 01/14/25 08:54 01/18/25 15:18 Hydromorphone Hcl Inj (*Crx) 2 Mg/Ml Vial IV PUSH 0.5 mg Q4H PRN Administration Pain Rated 7-10 Mirtazapine 15 mg 01/17/25 21:00 01/18/25 20:49 Mirtazapine 15 Mg Tablet PO 15 mg HS INGRIS Administration Ondansetron HCl 4 mg 01/15/25 08:00 01/16/25 10:05 Ondansetron Inj 4 Mg/2 Ml Vial IV PUSH 4 mg Q6H PRN Administration Nausea And Vomiting Radiology Results: ITS Impressions Chest X-Ray 01/14/25 06:46 IMPRESSION: Mild pulmonary vascular congestion (versus pulmonary vascular crowding from low lung volumes), without focal infiltrate or effusion. Chest/Abdomen/Pelvis CT 01/14/25 08:30 IMPRESSION: Significant hepatosplenomegaly. No prior dedicated imaging of the abdomen has been performed to demonstrate that this is a new or stable finding. Otherwise, no acute findings within the chest, abdomen or pelvis to explain patient's presenting symptoms.
[2025-01-19] MEDS: MIRTAZAPINE 15 MG TABLET PO (20:20)
[2025-01-20] VITALS (10 sets, daily range): BP systolic 114–125; BP diastolic 65–71; PULSE 72–97; RESP 16–20; TEMP 36.6–36.7; O2SAT 96–100
[2025-01-20] MEDS: CYCLOBENZAPRINE HCL 5 MG TABLET PO ×2 (07:43→19:17)
[2025-01-20] MEDS: HYDROcodone/acetaminophen (*CRX) 5-325 MG TABLET 1 TAB PO ×2 (07:44→15:05)
[2025-01-20] MEDS: AMOXICILLIN/CLAVULANATE K 875-125 MG TAB 1 TABLET PO ×2 (08:44→22:35)
--- NOTE | 2025-01-20 12:13 | P.PNIM_ITS ---
Progress Note: A&P Assessment and Plan (1) Cellulitis and abscess of lower extremity: Code(s): L03.119 - Cellulitis of unspecified part of limb; L02.419 - Cutaneous abscess of limb, unspecified Status: Acute Assessment and Plan: BL leg wounds pt treated wit iv zosyn transitioned to oral now - continue abx and pain meds PRN - wound care consulted - wound culture shows sensitivity to Augmentin - oral abx started - PT/ OT (2) Anemia: Code(s): D64.9 - Anemia, unspecified Status: Acute Assessment and Plan: * Upon admission 01/14, HGB 6.9 * Received 1 unit PRBC * Treating with Venofer 300mgx 3day, last dose this Tuesday * consult GI MD for possible scopes (3) Depressed: Code(s): F32.A - Depression, unspecified Status: Acute Assessment and Plan: * Psychiatric consult * Started Mirtazipine 15mg PO at night * Outpatient MH counseling (4) Opioid use disorder: Code(s): F11.90 - Opioid use, unspecified, uncomplicated Status: Acute Assessment and Plan: * Psychiatry recommend referral to [place] for Suboxone tx & depression Subjective Date/time seen: 01/20/25 12:13 Interval history: 49-year-old female with history of lupus presenting to the emergency department for evaluation for multiple complaints. Patient states she has had chronic wounds on her legs have been worsening over the course of the last year but due to depression patient has not been leaving the house. 01/18/2025 Patient is sitting comfortably in bed at time examination. Denies any chest pain, shortness of breath, nausea/vomiting, or abdominal pain. Still has some of bilateral lower extremity discomfort. PT/OT eval as pending at this time. Patient to receive 1 additional dose of Venofer tomorrow. Wound culture sensitivities resulted, still covered by Augmentin. Maintain antibiotic coverage with likely discharge this weekend. 01/19/2025 Pt receiving oral abx for cellulitis, pt receiving IV Venofer for anemia sp blood tranfusion, pt states she is having some rectal bleeding plan to consult GI for severe anemia. Hb 6 on admission. Continue present care with oral abx and dressing changes. 01/20/2025: pt awaiting GI consult for anemia. Hb better today at 9.3, was 6.9 on admission, continue wound care and PT/ OT over the weekend likely dc mira Review of Systems Review of Systems: No new compliants Exam Narrative: Patient is comfortable, NAD HEENT: eyes are clear and none icteric LUNGS:CTA HEART: RR S1S2 ABD: BS+, Soft and nontender Lower extremities: no edema SKIN: nonjaundiced Neuro: grossly intact. Objective Data Vital Signs Vital Signs: Vital Signs - 24 hr 01/19/25 14:00 01/19/25 16:00 01/19/25 20:00 Temperature 36.4 C Pulse Rate 84 87 97 Respiratory Rate 18 18 Blood Pressure 115/56 L Pulse Oximetry 98 97 Oxygen Delivery Room Air Fraction of Inspired Oxygen 21 01/19/25 20:00 01/19/25 20:24 01/19/25 21:30 Temperature 36.4 C L Pulse Rate 99 97 71 Respiratory Rate 18 20 Blood Pressure 139/77 Pulse Oximetry 97 97 Oxygen Delivery Room Air Fraction of Inspired Oxygen 21 01/20/25 00:00 01/20/25 04:00 01/20/25 05:47 Temperature 36.6 C Pulse Rate 72 72 97 Respiratory Rate 16 Blood Pressure 124/71 Pulse Oximetry 98 Oxygen Delivery Fraction of Inspired Oxygen 01/20/25 08:00 01/20/25 08:00 Temperature Pulse Rate 77 Respiratory Rate Blood Pressure Pulse Oximetry Oxygen Delivery Room Air Fraction of Inspired Oxygen Intake/Output Intake/Output: Intake & Output 01/17/25 01/18/25 01/19/25 01/20/25 23:59 23:59 23:59 23:59 Intake Total 7751 646 8767 540 Balance 5246 308 8488 540 Meds/Results Medications: Active Medications Generic Name Dose Route Start Last Admin Trade Name Freq PRN Reason Stop Dose Admin Hydrocodone Bitart/Acetaminophen 1 tab 01/14/25 12:51 01/20/25 07:44 Hydrocodone/Acetaminophen (*Crx) 5-325 Mg Tablet PO 1 tab Q6H PRN Administration Pain Rated 4-6 Amoxicillin/Clavulanate Potassium 1 tablet 01/16/25 19:00 01/20/25 08:44 Amoxicillin/Clavulanate K 875-125 Mg Tab PO 1 tablet Q12HR INGRIS Administration Benzocaine 1 lozenge 01/15/25 15:22 01/15/25 15:45 Benzocaine/Menthol (*Bkc) 18 Ea Lozenge PO 1 lozenge PRN PRN Administration Sore Throat Cyclobenzaprine HCl 5 mg 01/14/25 12:51 01/20/25 07:43 Cyclobenzaprine Hcl 5 Mg Tablet PO 5 mg Q12H PRN Administration Muscle Spasm Hydromorphone HCl 0.5 mg 01/14/25 08:54 01/18/25 15:18 Hydromorphone Hcl Inj (*Crx) 2 Mg/Ml Vial IV PUSH 0.5 mg Q4H PRN Administration Pain Rated 7-10 Mirtazapine 15 mg 01/17/25 21:00 01/19/25 20:20 Mirtazapine 15 Mg Tablet PO 15 mg HS INGRIS Administration Ondansetron HCl 4 mg 01/15/25 08:00 01/16/25 10:05 Ondansetron Inj 4 Mg/2 Ml Vial IV PUSH 4 mg Q6H PRN Administration Nausea And Vomiting Radiology Results: ITS Impressions Chest X-Ray 01/14/25 06:46 IMPRESSION: Mild pulmonary vascular congestion (versus pulmonary vascular crowding from low lung volumes), without focal infiltrate or effusion. Chest/Abdomen/Pelvis CT 01/14/25 08:30 IMPRESSION: Significant hepatosplenomegaly. No prior dedicated imaging of the abdomen has been performed to demonstrate that this is a new or stable finding. Otherwise, no acute findings within the chest, abdomen or pelvis to explain patient's presenting symptoms.
--- NOTE | 2025-01-20 15:58 | P.CONGI_ITS ---
Assessment and Plan Assessment and plan (1) Iron deficiency anemia: Code(s): D50.9 - Iron deficiency anemia, unspecified Status: Acute Assessment and Plan: she is agreeable to have scopes but would like to wait another day since she does not know if would be able to tolerate prep today probably for Tuesday (2) Cellulitis and abscess of lower extremity: Code(s): L03.119 - Cellulitis of unspecified part of limb; L02.419 - Cutaneous abscess of limb, unspecified Status: Acute Assessment and Plan: on abx (3) Opioid use disorder: Code(s): F11.90 - Opioid use, unspecified, uncomplicated Status: Acute (4) Major depressive disorder, recurrent severe without psychotic features: Code(s): F33.2 - Major depressive disorder, recurrent severe without psychotic features Status: Acute Assessment and Plan: evaluated by psych (5) Rectal bleeding: Code(s): K62.5 - Hemorrhage of anus and rectum Status: Acute Assessment and Plan: could have been perianal but will do colonoscopy to assess if malignancy or other reason to explain anemia (6) Elevated liver enzymes: Code(s): R74.8 - Abnormal levels of other serum enzymes Status: Acute Assessment and Plan: will get hepatitis panel, ultrasound (noted hepatosplenomegaly) and also hiv GI Consult Note Consult date/time: 01/20/25 15:58 Reason for consult: anemia HPI: Princess Castellano is a 49 year old female with history of lupus currently not taking medications and major depresion for which she has not left her house for almost 2 years. She came to ER few days ago after worsening pain in legs from chronic wound in her legs, she has not seen a doctor recently. Diagnosed with cellulitis, started on abx, wound care consult and admitted to hospital. Also noted new onset of microcytic anemia, given blood transfusion. No major bleeding but few occasions noted small amount of blood after wiping. Never had scopes. Review of Systems 2 Constitutional: Constitutional: Reports fatigue Eyes: Eyes: Denies blurry vision ENT: Reports Normal hearing present Cardiovascular: Cardiovascular: Denies chest pain Respiratory: Respiratory: Denies chest congestion Gastrointestinal: Gastrointestinal: Reports no additional gastrointestinal complaints Genitourinary: Genitourinary: Denies dysuria Musculoskeletal: Comments: leg pain Integumentary/Breasts: Skin/Breast: Reports wounds Neurologic: Denies Abnormal speech present Psychiatric: Psychiatric: Reports depression [facility] Past Medical History Medical History (Updated 01/20/25 @ 16:18 by Luis Armando Gurrola MD) Elevated liver enzymes Rectal bleeding Iron deficiency anemia Family History Family History (Updated 01/14/25 @ 10:31 by Chrissy Edgar RN) Mother Family history of lupus erythematosus Grandparent Breast cancer Grandparent No problems noted. Social History Social History (System 09/23/21 @ 10:04 by Johnny Cantrell) Smoking status: Former smoker Smoking end date: 12/21/19 Alcohol intake: never Substance use: current Substance use type: marijuana Other substance usage details: Gummies last year Do You Feel Safe in your Home?: Yes Lack of Transportation: No Lack of Food: Never True Current Housing: I Have Housing Concerned About Future Housing: No Difficulty Paying Gas/Electric Bills: No Difficulty Paying for Meds: No Currently Unemployed: No Education: Decline to Answer Difficulty w/ Childcare or Family Care: No Spiritual care concerns: No Meds Home Medications and Allergies Home Medications ?Medication ?Instructions ?Recorded ?Confirmed ?Type No Home Medications 01/14/25 01/14/25 History Allergies Allergy/AdvReac Type Severity Reaction Status Date / Time No Known Allergies Allergy Verified 01/14/25 05:45 Vital Signs Vital Signs - 24 hr 01/19/25 16:00 01/19/25 20:00 01/19/25 20:00 Temperature Pulse Rate 87 97 99 Respiratory Rate 18 Blood Pressure Pulse Oximetry 97 Oxygen Delivery Room Air Fraction of Inspired Oxygen 21 01/19/25 20:24 01/19/25 21:30 01/20/25 00:00 Temperature 97.5 F L Pulse Rate 97 71 72 Respiratory Rate 18 20 Blood Pressure 139/77 Pulse Oximetry 97 97 Oxygen Delivery Room Air Fraction of Inspired Oxygen 21 01/20/25 04:00 01/20/25 05:47 01/20/25 08:00 Temperature 97.9 F Pulse Rate 72 97 Respiratory Rate 16 Blood Pressure 124/71 Pulse Oximetry 98 Oxygen Delivery Room Air Fraction of Inspired Oxygen 01/20/25 08:00 01/20/25 12:00 01/20/25 14:00 Temperature 97.8 F Pulse Rate 77 96 87 Respiratory Rate 18 Blood Pressure 114/66 Pulse Oximetry 100 Oxygen Delivery Fraction of Inspired Oxygen Exam 2 Const: General: comfortable and no acute distress HENMT: Face/Nose/Sinus: Normal nares present Eyes: General: appearance normal, both eyes and all related structures Neck: Neck: supple Resp: Auscultation: clear to auscultation bilaterally Cardio: Rate: regular rate Rhythm: regular rhythm GI: Inspection: non-distended GI Palp: Yes Soft to palpation and No Tenderness to palpation present (GI) Auscultation: normal bowel sounds Skin: Wounds: wounds noted (legs, dressing in place) Neuro: Speech: normal speech Motor exam (neuro): 5/5 motor strength present throughout Extrem: General: normal to inspection Psych: Affect: Sad affect present Results Labs 01/18/25 07:38 01/18/25 07:38
[2025-01-20] MEDS: MIRTAZAPINE 15 MG TABLET PO (22:35)
[2025-01-21] VITALS (10 sets, daily range): BP systolic 131–151; BP diastolic 66–84; PULSE 70–87; RESP 16–18; TEMP 36.4–37.2; O2SAT 99–100
[2025-01-21] MEDS: AMOXICILLIN/CLAVULANATE K 875-125 MG TAB 1 TABLET PO ×2 (08:26→20:50)
[2025-01-21 09:01] LABS: Hepatitis B Surface Antigen Negative (Negative)
[2025-01-21 09:06] LABS: HAV RESULT Negative (Negative); Hepatitis B Core IgM Result Negative (Negative)
[2025-01-21 09:10] LABS: HIV 1/2 Ab P24 Ag Result Negative (Negative)
[2025-01-21 09:18] LABS: Hepatitis C Virus Antibody Negative (Negative)
--- NOTE | 2025-01-21 12:41 | P.PNIM_ITS ---
Progress Note: A&P Assessment and Plan (1) Cellulitis and abscess of lower extremity: Code(s): L03.119 - Cellulitis of unspecified part of limb; L02.419 - Cutaneous abscess of limb, unspecified Status: Acute Assessment and Plan: BL leg wounds pt treated wit iv zosyn transitioned to oral - continue abx and pain meds PRN - wound care consulted - wound culture shows sensitivity to Augmentin - oral abx started - PT/ OT (2) Anemia: Code(s): D64.9 - Anemia, unspecified Status: Acute Assessment and Plan: * Upon admission 01/14, HGB 6.9 * Received 2 unit PRBC since admission * Treating with Venofer 300mgx 3day * consulted GI MD * pt going for colonoscopy mira receiving bowel prep today * hb is 9 today (3) Depressed: Code(s): F32.A - Depression, unspecified Status: Acute Assessment and Plan: * Psychiatric consulted 01/15 * Started Mirtazipine 15mg PO at night * Outpatient MH counseling recommended (4) Opioid use disorder: Code(s): F11.90 - Opioid use, unspecified, uncomplicated Status: Acute Assessment and Plan: * Psychiatry recommend referral to [place] for Suboxone tx & depression Subjective Date/time seen: 01/21/25 12:41 Interval history: 49-year-old female with history of lupus presenting to the emergency department for evaluation for multiple complaints. Patient states she has had chronic wounds on her legs have been worsening over the course of the last year but due to depression patient has not been leaving the house. 01/18/2025 Patient is sitting comfortably in bed at time examination. Denies any chest pain, shortness of breath, nausea/vomiting, or abdominal pain. Still has some of bilateral lower extremity discomfort. PT/OT eval as pending at this time. Patient to receive 1 additional dose of Venofer tomorrow. Wound culture sensitivities resulted, still covered by Augmentin. Maintain antibiotic coverage with likely discharge this weekend. 01/19/2025 Pt receiving oral abx for cellulitis, pt receiving IV Venofer for anemia sp blood tranfusion, pt states she is having some rectal bleeding plan to consult GI for severe anemia. Hb 6 on admission. Continue present care with oral abx and dressing changes. 01/20/2025: pt awaiting GI consult for anemia. Hb better today at 9.3, was 6.9 on admission, continue wound care and PT/ OT over the weekend likely dc soon 01/21/2025: pt sp 2 units of blood and iv venofer, hb is 9 today, pt seen by GI MD receiving bowel prep today pt going for colonoscopy mira Review of Systems Review of Systems: Pt is very anxious, no melena or rectal bleeding reported today Exam Narrative: Patient is comfortable HEENT: eyes are clear and none icteric LUNGS:Clear lung jackson HEART: RR S1S2 ABDO: BS+, Soft and nontender Lower extremities: with BL dressings SKIN: nonjaundiced Neuro: grossly intact. Objective Data Vital Signs Vital Signs: Vital Signs - 24 hr 01/20/25 14:00 01/20/25 16:00 01/20/25 20:00 Temperature 36.6 C Pulse Rate 87 95 96 Respiratory Rate 18 20 Blood Pressure 114/66 Pulse Oximetry 100 96 Oxygen Delivery Room Air Fraction of Inspired Oxygen 21 01/20/25 20:00 01/20/25 20:24 01/20/25 21:11 Temperature 36.7 C Pulse Rate 89 91 96 Respiratory Rate 16 20 Blood Pressure 125/65 Pulse Oximetry 100 96 Oxygen Delivery Room Air Fraction of Inspired Oxygen 21 01/21/25 00:00 01/21/25 04:00 01/21/25 05:10 Temperature 37.2 C Pulse Rate 76 75 78 Respiratory Rate 18 Blood Pressure 151/84 H Pulse Oximetry 100 Oxygen Delivery Fraction of Inspired Oxygen 01/21/25 08:00 01/21/25 08:25 01/21/25 12:00 Temperature Pulse Rate 79 78 Respiratory Rate Blood Pressure Pulse Oximetry Oxygen Delivery Room Air Fraction of Inspired Oxygen Intake/Output Intake/Output: Intake & Output 01/18/25 01/19/25 01/20/25 01/21/25 23:59 23:59 23:59 23:59 Intake Total 845 1145 1020 1300 Balance 845 1145 1020 1300 Meds/Results Medications: Active Medications Generic Name Dose Route Start Last Admin Trade Name Freq PRN Reason Stop Dose Admin Hydrocodone Bitart/Acetaminophen 1 tab 01/14/25 12:51 01/20/25 15:05 Hydrocodone/Acetaminophen (*Crx) 5-325 Mg Tablet PO 1 tab Q6H PRN Administration Pain Rated 4-6 Amoxicillin/Clavulanate Potassium 1 tablet 01/16/25 19:00 01/21/25 08:26 Amoxicillin/Clavulanate K 875-125 Mg Tab PO 1 tablet Q12HR INGRIS Administration Benzocaine 1 lozenge 01/15/25 15:22 01/15/25 15:45 Benzocaine/Menthol (*Bkc) 18 Ea Lozenge PO 1 lozenge PRN PRN Administration Sore Throat Cyclobenzaprine HCl 5 mg 01/14/25 12:51 01/20/25 19:17 Cyclobenzaprine Hcl 5 Mg Tablet PO 5 mg Q12H PRN Administration Muscle Spasm Hydromorphone HCl 0.5 mg 01/14/25 08:54 01/18/25 15:18 Hydromorphone Hcl Inj (*Crx) 2 Mg/Ml Vial IV PUSH 0.5 mg Q4H PRN Administration Pain Rated 7-10 Mirtazapine 15 mg 01/17/25 21:00 01/20/25 22:35 Mirtazapine 15 Mg Tablet PO 15 mg HS INGRIS Administration Ondansetron HCl 4 mg 01/15/25 08:00 01/16/25 10:05 Ondansetron Inj 4 Mg/2 Ml Vial IV PUSH 4 mg Q6H PRN Administration Nausea And Vomiting Radiology Results: ITS Impressions Chest X-Ray 01/14/25 06:46 IMPRESSION: Mild pulmonary vascular congestion (versus pulmonary vascular crowding from low lung volumes), without focal infiltrate or effusion. Chest/Abdomen/Pelvis CT 01/14/25 08:30 IMPRESSION: Significant hepatosplenomegaly. No prior dedicated imaging of the abdomen has been performed to demonstrate that this is a new or stable finding. Otherwise, no acute findings within the chest, abdomen or pelvis to explain patient's presenting symptoms. Upper Quadrant Ultrasound 01/21/25 08:22 IMPRESSION: 1. Normal right upper quadrant ultrasound. Labs Labs: Laboratory Results - last 24 hr 01/18/25 01/18/25 07:34 07:43 Hepatitis A IgM Ab Negative Hep Bs Antigen Negative Hep B Core IgM Ab Negative Hepatitis C Ab Screen Negative HIV 1&2 Ab/P24 Ag 4thGn Negative
--- NOTE | 2025-01-21 13:25 | PCOTNOTE ---
Attempted to see Patient at this time. Patient refused, stated she tried PT, did not go well, having to much pain and its been a horrible day.
[2025-01-21] MEDS: HYDROcodone/acetaminophen (*CRX) 5-325 MG TABLET 1 TAB PO (13:27)
--- NOTE | 2025-01-21 15:40 | WPDGIPROGNO ---
Progress Note: A&P Assessment and Plan (1) Iron deficiency anemia: Code(s): D50.9 - Iron deficiency anemia, unspecified Status: Acute Assessment and Plan: no overt gib will do egd and colonoscopy to assess if gi source- noted kalpesh (2) Elevated liver enzymes: Code(s): R74.8 - Abnormal levels of other serum enzymes Status: Acute Assessment and Plan: liver ultrasound normal negative hepatitis and hiv could be elevated due to cellulitis, abx, etc repeat as outpatient and if still elevated then follow-up in office (3) Major depressive disorder, recurrent severe without psychotic features: Code(s): F33.2 - Major depressive disorder, recurrent severe without psychotic features Status: Acute (4) Opioid use disorder: Code(s): F11.90 - Opioid use, unspecified, uncomplicated Status: Acute (5) Depressed: Code(s): F32.A - Depression, unspecified Status: Acute (6) Cellulitis and abscess of lower extremity: Code(s): L03.119 - Cellulitis of unspecified part of limb; L02.419 - Cutaneous abscess of limb, unspecified Status: Acute Subjective Date/time seen: 01/21/25 15:40 Interval history: no new events, still pain in legs Review of Systems Review of Systems: All systems reviewed & are unremarkable except as noted in HPI and below Exam Const: General: comfortable and no acute distress HENMT: Face/Nose/Sinus: Normal nares present Eyes: General: appearance normal, both eyes and all related structures Neck: Neck: supple Resp: Auscultation: clear to auscultation bilaterally Cardio: Rate: regular rate Rhythm: regular rhythm GI: Inspection: non-distended GI Palp: Yes Soft to palpation and No Tenderness to palpation present (GI) Auscultation: normal bowel sounds Skin: Wounds: wounds noted (legs, dressing in place) Neuro: Speech: normal speech Motor exam (neuro): 5/5 motor strength present throughout Extrem: General: normal to inspection Psych: Affect: Sad affect present Objective Data Vital Signs Vital Signs: Vital Signs - 24 hr 01/20/25 16:00 01/20/25 20:00 01/20/25 20:00 Temperature Pulse Rate 95 96 89 Respiratory Rate 20 Blood Pressure Pulse Oximetry 96 Oxygen Delivery Room Air Fraction of Inspired Oxygen 21 01/20/25 20:24 01/20/25 21:11 01/21/25 00:00 Temperature 98.1 F Pulse Rate 91 96 76 Respiratory Rate 16 20 Blood Pressure 125/65 Pulse Oximetry 100 96 Oxygen Delivery Room Air Fraction of Inspired Oxygen 21 01/21/25 04:00 01/21/25 05:10 01/21/25 08:00 Temperature 99.0 F Pulse Rate 75 78 79 Respiratory Rate 18 Blood Pressure 151/84 H Pulse Oximetry 100 Oxygen Delivery Fraction of Inspired Oxygen 01/21/25 08:25 01/21/25 12:00 Temperature Pulse Rate 78 Respiratory Rate Blood Pressure Pulse Oximetry Oxygen Delivery Room Air Fraction of Inspired Oxygen Intake/Output Intake/Output: Intake & Output 01/18/25 01/19/25 01/20/25 01/21/25 23:59 23:59 23:59 23:59 Intake Total 845 1145 1020 1940 Balance 845 1145 1020 1940 Meds/Results Medications: Active Medications Generic Name Dose Route Start Last Admin Trade Name Freq PRN Reason Stop Dose Admin Hydrocodone Bitart/Acetaminophen 1 tab 01/14/25 12:51 01/21/25 13:27 Hydrocodone/Acetaminophen (*Crx) 5-325 Mg Tablet PO 1 tab Q6H PRN Administration Pain Rated 4-6 Amoxicillin/Clavulanate Potassium 1 tablet 01/16/25 19:00 01/21/25 08:26 Amoxicillin/Clavulanate K 875-125 Mg Tab PO 1 tablet Q12HR INGRIS Administration Benzocaine 1 lozenge 01/15/25 15:22 01/15/25 15:45 Benzocaine/Menthol (*Bkc) 18 Ea Lozenge PO 1 lozenge PRN PRN Administration Sore Throat Bisacodyl 20 mg 01/21/25 17:00 Bisacodyl 5 Mg Tablet Ec PO 01/21/25 17:01 ONCE ONE Cyclobenzaprine HCl 5 mg 01/14/25 12:51 01/20/25 19:17 Cyclobenzaprine Hcl 5 Mg Tablet PO 5 mg Q12H PRN Administration Muscle Spasm Hydromorphone HCl 0.5 mg 01/14/25 08:54 01/18/25 15:18 Hydromorphone Hcl Inj (*Crx) 2 Mg/Ml Vial IV PUSH 0.5 mg Q4H PRN Administration Pain Rated 7-10 Magnesium Citrate 300 ml 01/22/25 01:00 Magnesium Citrate 300 Ml Btl PO 01/22/25 01:01 ONCE ONE Mirtazapine 15 mg 01/17/25 21:00 01/20/25 22:35 Mirtazapine 15 Mg Tablet PO 15 mg HS INGRIS Administration Ondansetron HCl 4 mg 01/15/25 08:00 01/16/25 10:05 Ondansetron Inj 4 Mg/2 Ml Vial IV PUSH 4 mg Q6H PRN Administration Nausea And Vomiting Polyethylene Glycol 238 gm 01/21/25 17:00 Polyethylene Glycol 3350 238 Gm Bottle PO 01/21/25 17:01 ONCE ONE Radiology Results: ITS Impressions Chest X-Ray 01/14/25 06:46 IMPRESSION: Mild pulmonary vascular congestion (versus pulmonary vascular crowding from low lung volumes), without focal infiltrate or effusion. Chest/Abdomen/Pelvis CT 01/14/25 08:30 IMPRESSION: Significant hepatosplenomegaly. No prior dedicated imaging of the abdomen has been performed to demonstrate that this is a new or stable finding. Otherwise, no acute findings within the chest, abdomen or pelvis to explain patient's presenting symptoms. Upper Quadrant Ultrasound 01/21/25 08:22 IMPRESSION: 1. Normal right upper quadrant ultrasound. Labs Labs: Laboratory Results - last 24 hr 01/18/25 01/18/25 07:34 07:43 Hepatitis A IgM Ab Negative Hep Bs Antigen Negative Hep B Core IgM Ab Negative Hepatitis C Ab Screen Negative HIV 1&2 Ab/P24 Ag 4thGn Negative
[2025-01-21] MEDS: BISACODYL 5 MG TABLET EC 20 MG PO (17:19)
[2025-01-21] MEDS: polyethylene glycoL 3350 238 GM BOTTLE PO (17:19)
[2025-01-21] MEDS: MIRTAZAPINE 15 MG TABLET PO (20:50)
[2025-01-22] VITALS (12 sets, daily range): BP systolic 97–127; BP diastolic 61–86; PULSE 63–97; RESP 12–19; TEMP 36.1–36.5; O2SAT 98–100
[2025-01-22] MEDS: MAGNESIUM CITRATE 300 ML BTL PO ×2 (01:13→08:39)
[2025-01-22] MEDS: CYCLOBENZAPRINE HCL 5 MG TABLET PO ×2 (02:59→20:40)
[2025-01-22] MEDS: HYDROcodone/acetaminophen (*CRX) 5-325 MG TABLET 1 TAB PO ×4 (02:59→23:13)
[2025-01-22] MEDS: AMOXICILLIN/CLAVULANATE K 875-125 MG TAB 1 TABLET PO ×2 (08:39→20:40)
--- NOTE | 2025-01-22 10:40 | PCNWS ---
Weekly nutritional screen. Patient is tolerating current diet with adequate intake. No weight loss reported. No nutritional needs at this time.
--- NOTE | 2025-01-22 12:17 | PCOTNOTE ---
Per RN, Patient not available for treatment at this time. Patient is getting ready to go have a scope done.
--- NOTE | 2025-01-22 12:25 | PC.NURSE ---
Patient off floor to GI lab via stretcher
[2025-01-22] MEDS: LACTATED RINGERS 1,000 ML 150 ML IV CONT (12:32)
--- NOTE | 2025-01-22 12:34 | P.PNAN_ITS ---
Anes - Initial Pre Proc Eval Procedure: Operation Date: 01/22/25 13:30 Proposed Procedures p Esophagogastroduodenoscopy & Colonoscopy - Reji Walker MD Date/Time: 01/22/25 12:34 Surgeon: Kwame Elizabeth MD Pre Op Diagnosis: Lower extremity wounds, anemia, depression Patient Data Age: 49 Gender: F Height: 1.73 m Weight: 63 kg Last Vital Signs Temp 36.1 C L 01/22/25 12:29 Pulse 87 01/22/25 12:29 Resp 18 01/22/25 12:29 BP 112/61 01/22/25 12:29 Pulse Ox 100 01/22/25 12:29 O2 Del Method Room Air 01/22/25 12:29 FiO2 21 01/21/25 21:41 Allergies Allergy/AdvReac Type Severity Reaction Status Date / Time No Known Allergies Allergy Verified 01/22/25 12:26 Home Medications ?Medication ?Instructions ?Recorded ?Confirmed ?Type No Home Medications 01/14/25 01/14/25 History Patient hx anesthesia problems: none Family hx anesthesia problems: none Results Review: All pre-operative results and documents have been reviewed as part of the pre- operative evaluation. [facility] Past Medical History Medical History (Updated 01/22/25 @ 12:44 by Benigno Rios DO) Lupus Cellulitis Elevated liver enzymes Rectal bleeding Iron deficiency anemia Family History Family History (Updated 01/14/25 @ 10:31 by Chrissy Edgar RN) Mother Family history of lupus erythematosus Grandparent Breast cancer Grandparent No problems noted. Social History Social History (System 09/23/21 @ 10:04 by Johnny Cantrell) Smoking status: Former smoker Smoking end date: 12/21/19 Alcohol intake: never Substance use: current Substance use type: marijuana Other substance usage details: Gummies last year Do You Feel Safe in your Home?: Yes Lack of Transportation: No Lack of Food: Never True Current Housing: I Have Housing Concerned About Future Housing: No Difficulty Paying Gas/Electric Bills: No Difficulty Paying for Meds: No Currently Unemployed: No Education: Decline to Answer Difficulty w/ Childcare or Family Care: No Spiritual care concerns: No Anes - Eval Final PreProcedure Day of Procedure 01/22/25 12:34 Patient weight: normal Heart: regular rate and rhythm Lungs: clear to auscultation and normal air movement Airway: Mallampati scale class II Neurological: alert and oriented Last oral intake: >/= 8 hours ASA classification: III Emergent: no Anesthetic plan: proceed Anesthesia type and monitoring: general GIVS and standard monitoring Results Review: All pre-operative results and documents have been reviewed as part of the pre-o perative evaluation. Informed Consent: The patient's anesthetic plan and its attendant risks and benefits were discussed with the patient/family/POA. Questions were solicited and answers provided to the satisfaction of the patient/family/POA.
--- NOTE | 2025-01-22 13:58 | S_PTH ---
PATIENT: Princess Escobar LOC: [id number] U#:[id number] AGE/SX: 49/F ROOM: 258 RE01/15/[address]: Howie Terrell MD : 1975 BED: 01 DIS: 01/23/2025 SPEC #: [id number] RECD: 01/23/25 07:55 STATUS: [facility] REQ #: [id number] DANIEL: 01/22/25 13:[address]: Reji Walker DEPT: [facility] Surgical RECD BY: Puja Banegas ENTERED: 01/23/25 07:55 SP TYPE: Surgical OTHR DR: RACIEL Horta MD Srimannarayana Marella, MD Sanjay K. Nigam, MD [employer] PHYSICIAN Tissues: A - Gastric Biopsy B - Gastric Biopsy C - Colon Polypectomy Procedures: Hematoxylin and Eosin Stain Gross and Microscopic Level 4
--- NOTE | 2025-01-22 14:04 | SUR.OPER ---
EGD end time: 1342, Colonoscopy start time: 1354
--- NOTE | 2025-01-22 14:17 | WPDGIPROGNO ---
Progress Note: A&P Assessment and Plan (1) Iron deficiency anemia: Code(s): D50.9 - Iron deficiency anemia, unspecified Status: Acute Assessment and Plan: See EGD and colonoscopy report. Likely explanation for iron deficiency anemia is erosive gastritis and erosive esophagitis. Consider IV iron infusions and intensify PPI regimen. Check biopsies taken for H pylori, and if positive treat accordingly for 14 days with quadruple therapy. Subjective Date/time seen: 01/22/25 14:17 Objective Data Vital Signs Vital Signs: Vital Signs - 24 hr 01/21/25 16:00 01/21/25 20:00 01/21/25 20:00 Temperature Pulse Rate 70 87 81 Respiratory Rate 18 Blood Pressure Pulse Oximetry 99 Oxygen Delivery Room Air Fraction of Inspired Oxygen 21 01/21/25 20:37 01/21/25 21:41 01/22/25 00:00 Temperature 97.7 F Pulse Rate 87 63 Respiratory Rate 18 Blood Pressure 131/71 Pulse Oximetry 100 99 Oxygen Delivery Room Air Fraction of Inspired Oxygen 01/22/25 04:00 01/22/25 04:49 01/22/25 08:00 Temperature 97.7 F Pulse Rate 94 86 75 Respiratory Rate 18 Blood Pressure 124/68 Pulse Oximetry 100 Oxygen Delivery Fraction of Inspired Oxygen 01/22/25 08:40 01/22/25 12:00 01/22/25 12:29 Temperature 97 F L Pulse Rate 83 87 Respiratory Rate 18 Blood Pressure 112/61 Pulse Oximetry 100 Oxygen Delivery Room Air Room Air Fraction of Inspired Oxygen Intake/Output Intake/Output: Intake & Output 01/19/25 01/20/25 01/21/25 01/22/25 23:59 23:59 23:59 23:59 Intake Total 1145 1020 3880 240 Balance 1145 1020 3880 240 Meds/Results Medications: Active Medications Generic Name Dose Route Start Last Admin Trade Name Freq PRN Reason Stop Dose Admin Hydrocodone Bitart/Acetaminophen 1 tab 01/14/25 12:51 01/22/25 08:38 Hydrocodone/Acetaminophen (*Crx) 5-325 Mg Tablet PO 1 tab Q6H PRN Administration Pain Rated 4-6 Amoxicillin/Clavulanate Potassium 1 tablet 01/16/25 19:00 01/22/25 08:39 Amoxicillin/Clavulanate K 875-125 Mg Tab PO 1 tablet Q12HR INGRIS Administration Benzocaine 1 lozenge 01/15/25 15:22 01/15/25 15:45 Benzocaine/Menthol (*Bkc) 18 Ea Lozenge PO 1 lozenge PRN PRN Administration Sore Throat Cyclobenzaprine HCl 5 mg 01/14/25 12:51 01/22/25 02:59 Cyclobenzaprine Hcl 5 Mg Tablet PO 5 mg Q12H PRN Administration Muscle Spasm Hydromorphone HCl 0.5 mg 01/14/25 08:54 01/18/25 15:18 Hydromorphone Hcl Inj (*Crx) 2 Mg/Ml Vial IV PUSH 0.5 mg Q4H PRN Administration Pain Rated 7-10 Lactated Ringer's 1,000 mls @ 150 mls/hr 01/22/25 12:30 01/22/25 12:32 Lr - Lactated Ringers Iv IV CONT 150 mls/hr .Q6H40M INGRIS Administration Mirtazapine 15 mg 01/17/25 21:00 01/21/25 20:50 Mirtazapine 15 Mg Tablet PO 15 mg HS INGRIS Administration Ondansetron HCl 4 mg 01/15/25 08:00 01/16/25 10:05 Ondansetron Inj 4 Mg/2 Ml Vial IV PUSH 4 mg Q6H PRN Administration Nausea And Vomiting Radiology Results: ITS Impressions Chest X-Ray 01/14/25 06:46 IMPRESSION: Mild pulmonary vascular congestion (versus pulmonary vascular crowding from low lung volumes), without focal infiltrate or effusion. Chest/Abdomen/Pelvis CT 01/14/25 08:30 IMPRESSION: Significant hepatosplenomegaly. No prior dedicated imaging of the abdomen has been performed to demonstrate that this is a new or stable finding. Otherwise, no acute findings within the chest, abdomen or pelvis to explain patient's presenting symptoms. Upper Quadrant Ultrasound 01/21/25 08:22 IMPRESSION: 1. Normal right upper quadrant ultrasound.
--- NOTE | 2025-01-22 14:58 | PC.NURSE ---
Patient returned to floor from GI lab via stretcher. No patient complaints at this time.
--- NOTE | 2025-01-22 16:18 | PM.IMPN ---
Progress Note: A&P Assessment and Plan (1) Cellulitis and abscess of lower extremity: Code(s): L03.119 - Cellulitis of unspecified part of limb; L02.419 - Cutaneous abscess of limb, unspecified Status: Acute Assessment and Plan: Patient presents with bilateral leg wounds treated wit iv zosyn and now transitioned to oral - continue abx and pain meds PRN - wound care consulted - wound culture shows sensitivity to Augmentin - Abx Day 9. Will continue abx for now. - PT/ OT (2) Anemia: Code(s): D64.9 - Anemia, unspecified Status: Acute Assessment and Plan: Upon admission (01/14), Hgb was 6.9 She received 2 unit PRBC since admission Found to have iron deficiency and treated with Venofer 300mg x 3day She is no longer having periods. GI consulted. EGD showing reflux esophagitis and gastritis with erosions. Colonoscopy showed single polyp in the transverse colon that was removed. Repeat Hgb tomorrow. Start oral iron. Start PPI. Anti-reflux (3) Depressed: Code(s): F32.A - Depression, unspecified Status: Acute Assessment and Plan: Psychiatric consulted 01/15 She was started Mirtazipine 15mg PO at night Outpatient MH counseling recommended (4) Opioid use disorder: Code(s): F11.90 - Opioid use, unspecified, uncomplicated Status: Acute Assessment and Plan: Patient reports daily IV use of heroin and fentanyl, which began after running out of prescribed pain medication. Last use was immediately prior to hospitalization. Previous unsuccessful attempt at Suboxone treatment noted. Family history of substance use disorder in paternal aunt. 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 This has resulted in being homebound for over 2 years. As above. (6) Elevated liver enzymes: Code(s): R74.8 - Abnormal levels of other serum enzymes Status: Acute Assessment and Plan: CT scan showing hepatosplenomegaly but RUQ ultrasound normal Hepatitis and HIV negative GGT 351. AP 1206 but improved to 676. LFTs could be elevated due to cellulitis, abx, etc. AP markedly higher the rest. No periods for one year but check preg test. Plan for patient to follow-up in office Plan DVT prophylaxis - heparin Code status - full Subjective Date/time seen: 01/22/25 16:18 Interval history: 49yo female with SLE who presented with leg ulcers and generalized pain. Assuming care. Chart reviewed. She is back from endoscopy and is tolerating oral intake. She feels the leg pain is better. She has been educated about how to perform the dressing changes to her legs. Still with abdominal pain but better. Exam Narrative: AF 97.5 104/66 75 12 98% ra Gen - NARD Chest - CTA bilaterally, nml RR CV - RRR S1/S2; Tele showing no acute dysrhythmias Abd - Soft, NT/ND, Positive BS Ext - No pedal edema; bilateral distal LE dressings clean, dry and intact. Neuro - Alert and appropriate Psych - Nml mood and affect Skin - Warm and dry Objective Data Vital Signs Vital Signs: Vital Signs - 24 hr 01/21/25 20:00 01/21/25 20:00 01/21/25 20:37 Temperature 97.7 F Pulse Rate 87 81 87 Respiratory Rate 18 18 Blood Pressure 131/71 Pulse Oximetry 99 100 Oxygen Delivery Room Air Oxygen Flow Rate Fraction of Inspired Oxygen 01/21/25 21:41 01/22/25 00:00 01/22/25 04:00 Temperature Pulse Rate 63 94 Respiratory Rate Blood Pressure Pulse Oximetry 99 Oxygen Delivery Room Air Oxygen Flow Rate Fraction of Inspired Oxygen 01/22/25 04:49 01/22/25 08:00 01/22/25 08:40 Temperature 97.7 F Pulse Rate 86 75 Respiratory Rate 18 Blood Pressure 124/68 Pulse Oximetry 100 Oxygen Delivery Room Air Oxygen Flow Rate Fraction of Inspired Oxygen 01/22/25 12:00 01/22/25 12:29 01/22/25 14:00 Temperature 97 F L 97.5 F L Pulse Rate 83 87 77 Respiratory Rate 18 16 Blood Pressure 112/61 115/72 Pulse Oximetry 100 100 Oxygen Delivery Room Air Oxygen Flow Rate Fraction of Inspired Oxygen 01/22/25 14:21 01/22/25 14:31 01/22/25 14:41 Temperature Pulse Rate 79 77 75 Respiratory Rate 19 16 12 Blood Pressure 109/86 97/64 L 104/66 Pulse Oximetry 98 98 98 Oxygen Delivery Nasal Cannula Room Air Room Air Oxygen Flow Rate 4 Fraction of Inspired Oxygen Intake/Output Intake/Output: Intake & Output 01/19/25 01/20/25 01/21/25 01/22/25 23:59 23:59 23:59 23:59 Intake Total 1145 1020 3880 540 Balance 1145 1020 3880 540 Meds/Results Medications: Active Medications Generic Name Dose Route Start Last Admin Trade Name Freq PRN Reason Stop Dose Admin Hydrocodone Bitart/Acetaminophen 1 tab 01/14/25 12:51 01/22/25 08:38 Hydrocodone/Acetaminophen (*Crx) 5-325 Mg Tablet PO 1 tab Q6H PRN Administration Pain Rated 4-6 Amoxicillin/Clavulanate Potassium 1 tablet 01/16/25 19:00 01/22/25 08:39 Amoxicillin/Clavulanate K 875-125 Mg Tab PO 1 tablet Q12HR INGRIS Administration Benzocaine 1 lozenge 01/15/25 15:22 01/15/25 15:45 Benzocaine/Menthol (*Bkc) 18 Ea Lozenge PO 1 lozenge PRN PRN Administration Sore Throat Cyclobenzaprine HCl 5 mg 01/14/25 12:51 01/22/25 02:59 Cyclobenzaprine Hcl 5 Mg Tablet PO 5 mg Q12H PRN Administration Muscle Spasm Ferrous Sulfate 325 mg 01/23/25 09:00 Ferrous Sulfate [address] PO DAILY [facility] Hydromorphone HCl 0.5 mg 01/14/25 08:54 01/18/25 15:18 Hydromorphone Hcl Inj (*Crx) 2 Mg/Ml Vial IV PUSH 0.5 mg Q4H PRN Administration Pain Rated 7-10 Mirtazapine 15 mg 01/17/25 21:00 01/21/25 20:50 Mirtazapine 15 Mg Tablet PO 15 mg HS INGRIS Administration Ondansetron HCl 4 mg 01/15/25 08:00 01/16/25 10:05 Ondansetron Inj 4 Mg/2 Ml Vial IV PUSH 4 mg Q6H PRN Administration Nausea And Vomiting Pantoprazole Sodium 40 mg 01/23/25 09:00 Pantoprazole 40 [facility] [place] Results: ITS Impressions Chest X-Ray 01/14/25 06:46 IMPRESSION: Mild pulmonary vascular congestion (versus pulmonary vascular crowding from low lung volumes), without focal infiltrate or effusion. Chest/Abdomen/Pelvis CT 01/14/25 08:30 IMPRESSION: Significant hepatosplenomegaly. No prior dedicated imaging of the abdomen has been performed to demonstrate that this is a new or stable finding. Otherwise, no acute findings within the chest, abdomen or pelvis to explain patient's presenting symptoms. Upper Quadrant Ultrasound 01/21/25 08:22 IMPRESSION: 1. Normal right upper quadrant ultrasound.
[2025-01-22] MEDS: HEPARIN SODIUM 5,000 UNITS/ML VIAL 5000 UNITS SUB-Q (20:40)
[2025-01-22] MEDS: MIRTAZAPINE 15 MG TABLET PO (20:40)
[2025-01-23 04:50] VITALS: BP 132/75; PULSE 97; RESP 18; TEMP 37.1; O2SAT 99
[2025-01-23] MEDS: HYDROcodone/acetaminophen (*CRX) 5-325 MG TABLET 1 TAB PO (05:03)
[2025-01-23 05:42] LABS: Hematocrit 34.1 % (37.0-47.0); Hemoglobin 9.1 g/dL (12.0-15.0); Mean Corpuscular HGB Conc 26.7 g/dl (32-36); Mean Corpuscular Hemoglobin 20.3 pg (26-34); Mean Corpuscular Volume 75.9 fl (80-100); Mean Platelet Volume 8.6 fl (7.4-10.4); Platelet Count Result 320 k/mm3 (150-375); Red Blood Count 4.49 M/mm3 (4.2-5.4); Red Cell Distribution Width 25.2 % (11.5-14.5); White Blood Count 2.1 K/mm3 (4.5-10.0)
[2025-01-23 05:59] LABS: Alanine Aminotransferase 49 U/L (6-35); Albumin Level 3.6 g/dL (3.5-5.1); Alkaline Phosphatase 787 U/L (38-126); Anion Gap 8 mmol/L (4-12); Aspartate Amino Transferase 78 U/L (14-36); Bilirubin,Total 0.5 mg/dL (0.2-1.3); Blood Urea Nitrogen 10 mg/dL (7-17); Calcium 8.8 mg/dL (8.4-10.2); Carbon Dioxide 24 mmol/L (22-30); Chloride 105 mmol/L (98-107); Estimated CRCL calculation 134 ml/min; Estimated Glomerular Filt Rate > 60; Glucose 115 mg/dL (65-110); Potassium 4.4 mmol/L (3.4-5.0); Sodium 137 mmol/L (137-145); Total Protein 7.1 g/dL (6.3-8.2)
[2025-01-23 06:11] LABS: SPREG INTERNAL CONTROL Positive; Serum Qual hCG Negative
[2025-01-23] MEDS: FERROUS SULFATE 325 MG TABLET DR PO (08:42)
[2025-01-23] MEDS: AMOXICILLIN/CLAVULANATE K 875-125 MG TAB 1 TABLET PO ×2 (08:42→16:10)
[2025-01-23] MEDS: HEPARIN SODIUM 5,000 UNITS/ML VIAL 5000 UNITS SUB-Q (08:42)
[2025-01-23] MEDS: PANTOPRAZOLE 40 MG TABLET PO (08:42)
[2025-01-23] MEDS: CYCLOBENZAPRINE HCL 5 MG TABLET PO (08:44)
--- NOTE | 2025-01-23 11:46 | PM.DS ---
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 Please see H&P for details. Hospital Course: The following issues were addressed: (1) Cellulitis and abscess of lower extremity: Patient presented with bilateral leg wounds that are chronic with concern for cellulitis. She was treated with Zosyn and then transitioned to oral abx. Wound care was consulted. Wound culture shows sensitivity to Augmentin. She completed a course of abx. She worked with PT/ OT. Family was shown how to apply dressings. She does have help at home. (2) Anemia: Upon admission, the patient's Hgb was 6.9. She received 2 unit PRBC since admission. She was found to have iron deficiency and was treated with Venofer 300mg daily x 3days. She is no longer having periods. GI was consulted and endoscopy was recommended. She had an EGD which showed reflux esophagitis and gastritis with erosions. Colonoscopy showed single polyp in the transverse colon that was removed. Hgb climbed to 9 range and remained stable. She was started on oral iron. She was started on PPI. Anti-reflux instructions given. Mild leukopenia noted but felt related to her SLE. (3) Depressed: Patient with depressed mood. Psychiatry consulted and she was diagnosed with MDD. She was started Mirtazapine 15mg PO at night. Her mood remained stable. She is agreeable to continue this medication at discharge. Outpatient MH counseling recommended (4) Opioid use disorder: Patient reported daily IV use of heroin and fentanyl, which began after running out of prescribed pain medication in the past. Last use was immediately prior to hospitalization (although patient denies this to other providers). Previous unsuccessful attempt at Suboxone treatment noted. Family history of substance use disorder in paternal aunt. Psychiatry recommend referral to [place] for Suboxone tx & for the depression. (5) Agoraphobia with panic disorder: Patient reports anxiety and panic attacks associated with the prospect of leaving her house. This has resulted in being homebound for over 2 years. As above. (6) Elevated liver enzymes: Patient with mildly elevated liver function tests. CT scan showing hepatosplenomegaly but RUQ ultrasound was normal. Hepatitis and HIV negative. GGT 351. AP 1206 but improved. test was negative. LFTs could be elevated due to cellulitis, abx, SLE etc. AP markedly higher the rest. Plan for patient to follow-up in GI office. (7) SLE: Patient states she does not have a PCP or a [facility]. RN to provide patient a list of doctors in the area. Will also provide number to [facility]. She overall did well and was able to be discharged home on 01/23/25 Status at Discharge Cognitive/behavioral status at discharge: stable Time Spent with Patient Time attestation: Total time spent providing and/or coordinating discharge services: 35 minutes Time spent: Greater than 30 minutes Exam Narrative: AF 98.7 132/75 97 18 99% ra Gen - NARD Chest - CTA bilaterally, nml RR CV - RRR S1/S2 Abd - Soft, NT/ND, Positive BS Ext - large anterior distal LE bilateral shallow ulcer encompassing the whole distal LE below the knee to above the ankle that is mostly beefy red with scattered yellowish slough. Scant surrounding pink erythema of skin surrounding the wound but no brian cellulitis. No strong odor. Psych - Nml mood and affect Skin - Warm and dry DS: Data Data Completed and Pending Pending studies at discharge: Pending at discharge 01/22/25 13:58 Surgical [PTH] Routine Surgical [PTH] Routine Labs on day of discharge: Labs from last 24 hours 01/23/25 05:17 WBC 2.1 L RBC 4.49 Hgb 9.1 L Hct 34.1 L MCV 75.9 L MCH 20.3 L MCHC 26.7 L RDW 25.2 H Plt Count 320 MPV 8.6 Sodium 137 Potassium 4.4 Chloride 105 Carbon Dioxide 24 Anion Gap 8 BUN 10 Creatinine 0.41 L Estim Creat Clear Calc 134 Estimated GFR > 60 Glucose 115 H Calcium 8.8 Total Bilirubin 0.5 AST 78 H ALT 49 H Alkaline Phosphatase 787 H Total Protein 7.1 Albumin 3.6 Serum HCG, Qual Negative Discharge Plan Discharge Attending physician on discharge: Brad Terrell Consulting providers: Arnulfo Cotton; Faheem Fraire; Carl Casarez Discharging Clinician: Brad Terrell Anticipated Discharge Date/Time: 01/23/25 12:06 Patient Disposition: Home Activity: as tolerated Diet: regular Discharge Instructions: Your upper GI scope showed stomach irritation and gastric acid reflux: -- Regular diet but avoid caffeine, spicy foods, chocolate, mints, alcohol, nicotine, rich foods and red sauces as these increase acid reflux. -- Do not eat or drink anything for 2 hours prior to reclining. -- A medication for gastric acid suppression was ordered (pantoprazole) Your colonoscopy showed a polyp that was removed: -- Plan to have a repeat colonoscopy in 7 years -- Talk with the GI doctor at the next visit about what type of polyp it was Your liver tests were abnormal: -- Plan to follow up with the GI doctor in 4 weeks. You had iron deficiency anemia: -- Iron replacement was ordered. You have large leg ulcers: -- You have completed your antibiotics -- Continue the daily dressing changes as instructed For your Lupus: -- Please arrange to see a academic program specialist at [facility] ([phone]) For your depression and opioid abuse: -- You will go home with a medication to help with your mood (mirtazapine) -- The psychiatrist recommended that you follow up [place] for Suboxone treatment and for depression -- Please call [place] to arrange for outpatient treatment. Take precautions to avoid falls. Rise slowly from a lying or sitting position. Pause before standing or walking. Contact your doctor or call 911 and come to the Emergency Room if you have fevers, feel hopeless or suicidal or other worrisome symptoms. Follow-up with your primary care provider in 1-2 weeks. Please call for appointment. Thank you for using [facility] for your health care needs. Patient Instructions: Antibiotic Form Patient Language: Croatian Stand Alone Forms: General Discharge Information Follow-up/Referrals: PHYSICIAN,NUTRITIONAL SERVICES DIRECTOR [Primary Care Provider] - Call for Appointment Luis Armando Gurrola MD [Physician] - 4 Weeks (elevated LFTs) Discharge Medications: New mirtazapine [Remeron] 15 mg Tablet 15 mg PO HS Qty: 30 1RF ferrous sulfate 325 mg (65 mg iron) Tablet,Delayed Release (Dr/Ec) 325 mg PO DAILY Qty: 30 0RF pantoprazole 40 mg Tablet,Delayed Release (Dr/Ec) 40 mg PO QAM Qty: 30 0RF Continued No Home Medications Date of admission: 01/15/25 10:29 Primary Care Provider: PHYSICIAN,NUTRITIONAL SERVICES DIRECTOR Admitting Provider: Kwame Elizabeth Attending physician on admission: Kwame Elizabeth Condition: Stable Hospitalist MIPS Heart Failure (Exclusion) Patient has history of Heart Transplant or Left Ventricular Assistive Device?: No IF YES, STOP HERE Heart Failure (Qualifier) Patient has current or prior documentation of LVEF less than or equal to 40%, or mod/servere depressed LVSF?: No IF NO, STOP HERE
--- NOTE | 2025-01-23 11:59 | PCOTNOTE ---
Patient refused treatment this session. Patient reports she is leaving today.
[2025-01-23 14:00] VITALS: BP 129/65; PULSE 81; RESP 18; TEMP 36.2; O2SAT 97
== END 2025-01-23 16:30 | disposition home or self-care (01) | DRG 383 ==
LOC: ANHED 09:56 → ANH2MED 10:08
PROVIDERS: Family Medicine; Internal Medicine Gastroenterology; Physician Assistant; Student in an Organized Health Care Education/Training Program; Admitting Provider General Practice; Emergency Provider Emergency Medicine; Visit Provider Internal Medicine
PROC: 0DJ08ZZ Inspection of Upper Intestinal Tract, Via Natural or Artificial Opening Endoscopic (ICD-10-PCS; CPT 45378; principal; 2025-01-22 13:30)
DX: L03.115 Cellulitis of right lower limb (principal); L02.415 Cutaneous abscess of right lower limb; L03.116 Cellulitis of left lower limb; L02.416 Cutaneous abscess of left lower limb; L97.929 Non-pressure chronic ulcer of unspecified part of left lower leg with unspecified severity; L97.919 Non-pressure chronic ulcer of unspecified part of right lower leg with unspecified severity; M32.9 Systemic lupus erythematosus, unspecified; K21.00 Gastro-esophageal reflux disease with esophagitis, without bleeding; K29.51 Unspecified chronic gastritis with bleeding; K63.5 Polyp of colon; D50.9 Iron deficiency anemia, unspecified; F40.01 Agoraphobia with panic disorder; F11.20 Opioid dependence, uncomplicated; F33.2 Major depressive disorder, recurrent severe without psychotic features; R74.8 Abnormal levels of other serum enzymes; Z87.891 Personal history of nicotine dependence
CPT/HCPCS: 36415; 36430; 71045; 71260; 74177; 76705; 80053; 80074; 80307; 81001; 82607; 82728; 82746; 82977; 83010; 83540; 83550; 83605; 83615; 83690; 83880; 84484; 84703; 85014; 85018; 85025; 85027; 85046; 85610; 85730; 86703; 86850; 86900; 86901; 86923; 87040; 87070; 87075; 87181; 87186; 87205; 88305; 93005; 96365; 96375; 96376; 97110; 97161; 97166; 97530; 97535; 99285; A9270; G0378; G0379; G0432; J1171; J1644; J1756; J2003; J2371; J2405; J2543; J2704; J7050; J7120; P9016; Q9967